=== PATIENT | male | born 1950 | race Caucasian/White ===

== ENCOUNTER 2020-10-18 08:14 | Outpatient (REF) | payer MEDICARE, MEDICAID, SELFPAY ==
[2020-10-18 10:51] LABS: Alanine Aminotransferase 22 U/L (0-40); Albumin Level 4.3 g/dL (3.5-5.0); Alkaline Phosphatase 58 U/L (39-117); Anion Gap 12 (12-20); Aspartate Amino Transferase 20 U/L (5-37); Bilirubin Total 0.7 mg/dL (0.0-1.0); Blood Urea Nitrogen 12 mg/dL (9-16); Calcium 9.1 mg/dL (8.4-10.2); Carbon Dioxide 28 mmol/L (22-29); Chloride 105 mmol/L (96-108); Cholesterol 137 mg/dL; Estimated Glomerular Filt Rate > 60; Glucose Fasting 88 mg/dL (60-99); HDL Cholesterol 35 mg/dL; LDL Cholesterol Calculated 88 mg/dl; Potassium 4.3 mmol/L (3.3-5.1); Sodium 141 mmol/L (135-145); Triglycerides 73 mg/dL
[2020-10-18 12:42] LABS: Prostate Specific Antigen Scr 0.37 ng/mL (<0.05-4.0); TSH reflex Free T4 0.66 uIU/mL (0.32-4.0)
== END 2020-10-18 08:15 | disposition home or self-care (01) ==
LOC: HO.LAB 08:14
PROVIDERS: PCP Hospitalist; Visit Provider Family Medicine
DX: Z00.00 Encounter for general adult medical examination without abnormal findings (principal); Z12.5 Encounter for screening for malignant neoplasm of prostate
CPT/HCPCS: 36415; 80053; 80061; 84153; 84443

== ENCOUNTER 2021-06-26 07:38 | Outpatient (REF) | payer MEDICARE, MEDICAID, SELFPAY ==
[2021-06-26 08:38] LABS: Hematocrit 43.3 % (42.0-52.0); Hemoglobin 13.9 g/dl (14.0-18.0); Mean Corpuscular HGB Conc 32.1 g/dl (31.0-36.0); Mean Corpuscular Hemoglobin 28.3 pg (27.0-33.0); Mean Corpuscular Volume 88.2 fL (80.0-98.0); Mean Platelet Volume 9.2 fL (9.4-12.4); Platelet Count 224 X10*3/uL (160-400); Red Blood Count 4.91 X10*6/uL (4.60-5.80); Red Cell Distribution Width 13.7 % (11.0-16.0); White Blood Count 7.4 X10*3/uL (4.8-10.8)
[2021-06-26 09:06] LABS: Alanine Aminotransferase 13 U/L (0-40); Albumin Level 3.9 g/dL (3.5-5.0); Alkaline Phosphatase 58 U/L (39-117); Anion Gap 12 (12-20); Aspartate Amino Transferase 17 U/L (5-37); Bilirubin Total 0.5 mg/dL (0.0-1.0); Blood Urea Nitrogen 8 mg/dL (9-16); Calcium 9.2 mg/dL (8.4-10.2); Carbon Dioxide 27 mmol/L (22-29); Chloride 107 mmol/L (96-108); Cholesterol 149 mg/dL; Estimated Glomerular Filt Rate > 60; Glucose Fasting 91 mg/dL (60-99); HDL Cholesterol 39 mg/dL; LDL Cholesterol Calculated 92 mg/dl; Potassium 4.5 mmol/L (3.3-5.1); Sodium 141 mmol/L (135-145); Triglycerides 90 mg/dL
[2021-06-26 09:27] LABS: TSH reflex Free T4 1.23 uIU/mL (0.32-4.0)
== END 2021-06-26 07:39 | disposition home or self-care (01) ==
LOC: HO.LAB 07:38
PROVIDERS: PCP Hospitalist; Visit Provider Hospitalist
DX: Z00.01 Encounter for general adult medical examination with abnormal findings (principal)
CPT/HCPCS: 36415; 80053; 80061; 84443; 85027

== ENCOUNTER → 2021-10-02 10:05 | Outpatient (REF) | payer MEDICARE, MEDICAID, SELFPAY ==
--- NOTE | 2021-10-02 10:15 | ECG_ITS ---
Test Reason : HIGH MED USE Blood Pressure : / mmHG Vent. Rate : 063 BPM Atrial Rate : 063 BPM P-R Int : 148 ms QRS Dur : 090 ms QT Int : 412 ms P-R-T Axes : 039 009 033 degrees QTc Int : 421 ms Normal sinus rhythm Normal ECG When compared with ECG of 21-JUN-2018 22:07, No significant change was found Referred By: Mirella Whitfield Electronically Signed By:ELI MILLER MD
== END ==
LOC: HO.CARD 10:05
PROVIDERS: PCP Hospitalist; Visit Provider Clinical Nurse Specialist Psychiatric/Mental Health, Adult
DX: Z79.899 Other long term (current) drug therapy (principal)
CPT/HCPCS: 93005

== ENCOUNTER 2021-10-24 07:39 | Outpatient (REF) | payer MEDICARE, MEDICAID, SELFPAY ==
[2021-10-24 07:54] LABS: MANUAL DIFF FLAG NO
[2021-10-24 08:38] LABS: Basophils Percent Auto 0.5 % (0-2); Eosinophils Absolute Auto 0.2 X10*3/uL (0.0-0.4); Eosinophils Percent Auto 2.1 % (0-4); Hematocrit 44.9 % (42.0-52.0); Hemoglobin 14.9 g/dl (14.0-18.0); Imm Gran Abs Auto 0.02 X10*3/uL (0.00-0.03); Imm Gran Pct Auto 0.2 % (0.0-0.4); Lymphocytes Absolute Auto 2.4 X10*3/uL (1.2-4.9); Lymphocytes Percent Auto 27.6 % (20-40); Mean Corpuscular HGB Conc 33.2 g/dl (31.0-36.0); Mean Corpuscular Hemoglobin 29.2 pg (27.0-33.0); Mean Platelet Volume 9.3 fL (9.4-12.4); Monocytes Absolute Auto 0.7 X10*3/uL (0.1-1.2); Monocytes Percent Auto 7.5 % (2-11); Neutrophils Absolute Auto 5.4 x10*3/uL (2.0-8.3); Neutrophils Percent Auto 62.1 % (45-73); Platelet Count 235 X10*3/uL (160-400); Red Cell Distribution Width 13.2 % (11.0-16.0); White Blood Count 8.7 X10*3/uL (4.8-10.8)
[2021-10-24 09:12] LABS: Alanine Aminotransferase 26 U/L (0-40); Albumin Level 4.2 g/dL (3.5-5.0); Alkaline Phosphatase 57 U/L (39-117); Anion Gap 13 (12-20); Aspartate Amino Transferase 22 U/L (5-37); Bilirubin Direct 0.3 mg/dL (0.0-0.5); Bilirubin Total 0.7 mg/dL (0.0-1.0); Blood Urea Nitrogen 13 mg/dL (9-16); Calcium 9.4 mg/dL (8.4-10.2); Carbon Dioxide 28 mmol/L (22-29); Chloride 104 mmol/L (96-108); Cholesterol 164 mg/dL; Estimated Glomerular Filt Rate > 60; Glucose Random 91 mg/dL (60-115); HDL Cholesterol 40 mg/dL; LDL Cholesterol Calculated 107 mg/dl; Potassium 4.1 mmol/L (3.3-5.1); Sodium 141 mmol/L (135-145); Total Protein 7.3 g/dL (6.5-8.0); Triglycerides 87 mg/dL
[2021-10-24 09:22] LABS: HBc Num1 0.06 S/CO (0.00-0.79); HBsAGNum1 0.27 S/CO (0.00-0.99); Hepatitis B Core Antibody Nonreactive (Nonreactive); Hepatitis B Surface Antigen Negative (Negative); ~HepC Num1 0.07 S/CO (0.00-0.79); ~Hepatitis B Surface Antibody NONREACTIVE (Nonreactive); ~Hepatitis C Antibody Nonreactive (Nonreactive)
[2021-10-27 01:02] LABS: TS Negative Control Passed; TS Panel A 0; TS Panel B 0; TS Positive Control Passed; TSpotTB Negative (Negative)
== END 2021-10-24 07:40 | disposition home or self-care (01) ==
LOC: HO.LAB 07:39
PROVIDERS: PCP Hospitalist; Visit Provider Physician Assistant Medical
DX: Z11.1 Encounter for screening for respiratory tuberculosis (principal); L40.0 Psoriasis vulgaris
CPT/HCPCS: 36415; 80048; 80061; 80076; 85025; 86481; 86704; 86706; 86803; 87340

== ENCOUNTER 2023-03-05 13:14 | Outpatient (AMB) | payer MEDICARE, MEDICAID, SELFPAY ==
--- NOTE | 2023-03-05 13:14 | MHC.PC.OV ---
Vital Signs 03/05/23 13:15 Height 5 ft 7 in Weight 168 lb 2 oz BMI 26.3 BP 126/60 Blood Pressure Location Rt brachial Position Sitting Respiration 12 Pulse 94 Pulse Source Pulse Oximeter Temp 97.5 F Temp Source Temporal Artery Scan Pulse Oximetry (%) 96 Oxygen Delivery Method Room Air Intake Visit Reasons: 6 m fu for asthma, htn and constipation Security Operations Center Operator Required: Yes Security Operations Center Operator Name: Ady ([id number]) Accompanied by: social sciences professor Allergies No Known Allergies [No Known Allergies*] Allergy (Verified 03/05/23 13:36) Medication List - Last Reconciled 03/05/23 by Kamaljit Nath CNP acetaminophen 650 mg (2 x 325 mg) PO Q6H PRN albuterol sulfate 90 mcg/actuation (Ventolin HFA) 2 puffs inhalation Q6H PRN 30 days apremilast (Otezla) 30 mg PO BID ciclopirox 0.77% 1 appl topical ONCE 4 weeks escitalopram oxalate 20 mg PO DAILY fluocinonide 0.05% 1 appl topical BID 30 days gabapentin 400 mg (1/2 x 800 mg) PO TID magnesium hydroxide (Milk of Magnesia) 30 mL PO .q 72 hours PRN 30 days melatonin 3 mg PO BEDTIME multivitamin with iron-mineral 1 tab PO DAILY 90 days prazosin 2 mg PO BEDTIME risperidone 1 mg PO DAILY risperidone 2 mg PO BEDTIME tapinarof 1% (Vtama) 1 appl topical DAILY trazodone 25 mg PO DAILY Tobacco use date assessed: 03/05/23 Fall risk assessment: No Falls in past year Last assessed Fall Risk: 03/05/23 Dental Screening Dental Screen Date: 03/05/23 Did you have a dental visit in the last 12 months?: Yes Did you have a dental problem in the last 6 months where you did not have access to dental care?: No Was dental information given to patient?: Patient has dentist HPI HPI Comments History of Present Illness Details 72-year-old Algerian speaking male presents for 6 months follow-up for asthma, hypertension, and constipation. He denies history of hypertension. He also denies acute asthma or constipation symptoms. His former PCP was [facility] was no longer with the practice He admits to taking his medication as prescribed His last physical exam was in July 2022 and blood work was in September 2021. He reports regular bowel movements and denies bowel changes. According to the [facility] staff, the patient is followed by a psychiatrist every 3-6 month for anxiety and depression. His psychiatrist manages his psychotropic medications. He notes that his last colonoscopy was over 10 years ago: normal. He admits to getting annual eye exam and states he has a follow-up visit with Ophthalmology next week. He states that he smokes between 3 to 9 cigarettes daily for several years. He notes that he started smoking since he was 20 years old. He states that he intends to quit smoking and will abruptly quit. He states he does not need medication treatment for smoking cessation. [facility] Medical History (Updated 03/05/23 @ 14:31 by Kamaljit Nath CNP) Nervous disorder Depression Anxiety Surgical History (Updated 03/05/23 @ 13:26 by Kya Syed MA) No pertinent past surgical history Social History Housing: Other ([facility] ) Housing Other:: [facility] Alcohol intake: former Patient Tobacco Use Status: Current everyday Tobacco user Tobacco use type: Cigarette Cigarettes Per Day: 7 e-Cigarette/Vaping Use: Never Used service: No Current occupational status: unemployed Cognitive needs: Yes Hearing needs: Yes Vision needs: No Questionnaire Thrive Questionnaire Date Thrive assessed: 07/16/22 CARIE-7 AMB Questionnaire CARIE-7 Date CARIE - 7 assessed: 07/16/22 Source: Developed by Drs. Stefano Rajan, Maria Dolores Multani, Kaden Oscar and colleagues, with an educational juan from [employer]. ACT Questionnaire In the past 4 weeks, how much of the time did your asthma keep you from getting as much done at work, school or at home?: Most of the time During the past 4 weeks, how often have you had shortness of breath?: 3-6 times a week During the past 4 weeks, how often did your asthma symptoms wake you up at night or earlier than usual in the morning?: Not at all During the past 4 weeks, how often have you had to use your rescue inhaler or nebulizer medication?: Not at all How would you rate your asthma control during the past 4 weeks?: Well controlled Score: 19 Review of Systems Const Details: Const Denies chills, Denies fatigue, Denies fever(s), Denies headache(s) and Denies weakness ENT Denies dizziness and Denies headache(s) Card Denies chest pain, Denies lightheadedness, Denies dyspnea and Denies other (Palpitations) Resp Denies cough, Denies dyspnea, Denies wheezing and Denies other ( shortness of breath) GI Denies abdominal pain, Denies melena, Denies hematochezia, Denies change in bowel habits, Denies dyspepsia and Denies nausea Denies hematuria and Denies dysuria Musc Denies abnormal gait, Denies myalgias, Denies arthralgias, Denies numbness and Denies tingling Skin/Breast Denies rash, Denies unusual bruising and Denies wounds Neuro Denies abnormal gait, Denies dizziness, Denies headache(s), Denies memory loss, Denies numbness, Denies Sensory deficit (Neuro), Denies tingling and Denies weakness Psych Denies anxiety, Denies depression, Denies memory loss Endo Denies cold intolerance, Denies fatigue, Denies heat intolerance, Denies polydipsia and Denies polyuria Aller/Immun Denies wheezing Physical exam (Primary Care) Vital Signs: Last Vital Signs Temp 97.5 F 03/05/23 13:15 Pulse 94 03/05/23 13:15 Resp 12 03/05/23 13:15 BP 126/60 03/05/23 13:15 Pulse Ox 96 03/05/23 13:15 Oxygen Delivery Method Room Air 03/05/23 13:15 BMI result Body Mass Index 26.3 Tobacco/Smoking Status: Tobacco use Status Tobacco use date assessed 03/05/23 03/05/23 13:31 Patient Tobacco Use Status Current everyday Tobacco 03/05/23 13:22 Tobacco use type Cigarette 03/05/23 13:22 e-Cigarette/Vaping Use Never Used 03/05/23 13:22 Thrive Assessment: Date of Thrive Assessment Date Thrive assessed 07/16/22 03/05/23 13:22 Const Other: General: no acute distress and well developed Nutritional Appearance: well nourished Orientation/consciousness: patient oriented x3 HENMT Head: Yes normocephalic and Yes atraumatic Eyes General: appearance normal, both eyes and all related structures Pupils: Equal, round and reactive pupils present EOM: EOMs intact bilaterally Resp Effort & Inspection: normal respiratory effort Auscultation: clear to auscultation bilaterally Cardio Rate: regular rate Rhythm: regular rhythm Heart sounds: S1 normal heart sound present, S2 normal heart sound present, no gallops, no murmurs and no rubs GI Palpation (GI): No Abdominal aortic bruit present, Soft to palpation, nontender, No hepatosplenomegaly present and No Rebound tenderness present Auscultation: normal bowel sounds General: Yes no CVA tenderness Back/Spine/Pelvis Back: no CVA tenderness Cervical Spine: cervical ROM normal and No Cervical spine tenderness Thoracic/Lumbar Spine: thoraco-lumbar ROM normal, No pain with thoraco-lumbar ROM, No thoracic spinal tenderness and No lumbar spinal tenderness Extrem General: Yes normal to inspection, No edema and No calf tenderness Skin General: warm and dry. Normal skin color. Normal skin turgor Lesions: no lesions Rashes: no rashes Trauma: no lacerations or abrasions Wounds: no wounds Nails: normal Neuro General: patient oriented x3, gait normal and no focal neuro deficit Cranial nerves: Yes Equal, round and reactive pupils present Cognition (Neuro): normal cognition Gait exam (Neuro): Normal gait present Sensory Exam: No Sensory deficit (Neuro) Psych Appearance: grossly normal Affect: normal affect Attitude: cooperative Thought process: Normal thought process present Assessment and Plan Assessment & Plan (1) Anxiety: Code(s): F41.9 - Anxiety disorder, unspecified Plan: No acute symptoms at this time Normal physical exam Vital signs stable Encouraged to continue with current treatment regimen Continue follow-up with his psychiatrist as planned Follow-up with Ophthalmology as planned Routine labs ordered. Advised to fast for at least 10-12 hours before getting blood work done Encouraged to schedule his next complete physical exam for next year Return with symptoms or concerns Verbalized understanding and agreed with treatment plan. Interpretation by professional manager land via electronic tablet. (2) Depression: Code(s): F32.9 - Major depressive disorder, single episode, unspecified Plan: As above (3) Colon cancer screening: Code(s): Z12.11 - Encounter for screening for malignant neoplasm of colon Plan: He notes that his last colonoscopy was over 10 years ago: normal [place]erred [place] [facility] (4) Laboratory tests ordered as part of a complete physical exam (CPE): Code(s): Z00.00 - Encounter for general adult medical examination without abnormal findings Plan: Fasting labs ordered as part of a complete physical exam. Advised to fast for at least 10 hours before getting labs drawn. May drink water Verbalized understanding and agreed with treatment plan. Orders: Orders Complete Blood Count Auto Diff Today Z00.00 - Encounter for general adult medical examination without abnormal findings UA CC w/rflx Micro + Cult Today Z00.00 - Encounter for general adult medical examination without abnormal findings PSA, Ultra Sensitive Today Z00.00 - Encounter for general adult medical examination without abnormal findings Comprehensive [place]. Panel Fast Today Z00.00 - Encounter for general adult medical examination without abnormal findings Lipid Panel Today Z00.00 - Encounter for general adult medical examination without abnormal findings TSH reflex Free T4 Today Z00.00 - Encounter for general adult medical examination without abnormal findings Referrals Gastroenterology Referral Z12.11 - Encounter for screening for malignant neoplasm of colon Medications: Changed From risperidone 2 mg PO BID 60 tabs 3RF To risperidone 2 mg PO BEDTIME Coding Level of Care Code Est Pt Level 3 (64976) Diagnoses Anxiety F41.9 Depression F32.9 Colon cancer screening Z12.11 Laboratory tests ordered as part of a complete physical exam (CPE) Z00.00
[2023-03-05 13:15] VITALS: BP 126/60; PULSE 94; RESP 12; TEMP 36.4; O2SAT 96; BMI 26.3
== END 2023-03-05 14:21 | disposition home or self-care (01) ==
PROVIDERS: PCP Nurse Practitioner Family; Visit Provider Nurse Practitioner Family
DX: F41.9 Anxiety disorder, unspecified (principal); F32.9 Major depressive disorder, single episode, unspecified; Z12.11 Encounter for screening for malignant neoplasm of colon; F17.210 Nicotine dependence, cigarettes, uncomplicated
CPT/HCPCS: 99214

== ENCOUNTER 2023-03-06 08:23 | Outpatient (REF) | payer MEDICARE, MEDICAID, SELFPAY ==
[2023-03-06 09:36] LABS: Alanine Aminotransferase 14 U/L (0-40); Albumin Level 4.2 g/dL (3.5-5.0); Alkaline Phosphatase 67 U/L (39-117); Anion Gap 13 (12-20); Aspartate Amino Transferase 19 U/L (5-37); Bilirubin Total 0.4 mg/dL (0.0-1.0); Blood Urea Nitrogen 7 mg/dL (9-16); Calcium 9.3 mg/dL (8.4-10.2); Carbon Dioxide 28 mmol/L (22-29); Chloride 105 mmol/L (96-108); Cholesterol 142 mg/dL (<200); Estimated Glomerular Filt Rate > 60; Glucose Fasting 101 mg/dL (60-99); HDL Cholesterol 43 mg/dL (>40); LDL Cholesterol Calculated 85 mg/dL (<100); Potassium 4.1 mmol/L (3.3-5.1); Sodium 142 mmol/L (135-145); Total Protein 7.1 g/dL (6.5-8.0); Triglycerides 72 mg/dL (<150)
[2023-03-06 09:40] LABS: TSH reflex Free T4 0.72 uIU/mL (0.32-4.0)
[2023-03-12 19:18] LABS: PSA, Ultra Sensitive 0.13 ng/mL
== END 2023-03-06 08:24 | disposition home or self-care (01) ==
LOC: HO.LAB 08:23
PROVIDERS: Visit Provider Nurse Practitioner Family
DX: Z00.00 Encounter for general adult medical examination without abnormal findings (principal); Z20.822 Contact with and (suspected) exposure to COVID-19; Z12.5 Encounter for screening for malignant neoplasm of prostate
CPT/HCPCS: 36415; 80053; 80061; 81003; 84153; 84443; 85025

== ENCOUNTER → 2023-04-17 12:24 | Outpatient (BNVA) | payer MEDICARE, MEDICAID, SELFPAY | PROVIDERS: PCP Nurse Practitioner Family; Visit Provider Physician Assistant ==

== ENCOUNTER 2023-08-05 10:06 | Outpatient (AMB) | payer MEDICARE, MEDICAID, SELFPAY ==
[2023-08-05 10:11] VITALS: BP 124/60; PULSE 75; RESP 13; TEMP 36.3; O2SAT 99; BMI 26.2
--- NOTE | 2023-08-05 10:11 | MHC.PC.OV ---
Vital Signs 08/05/23 10:11 Height 5 ft 7 in Weight 167 lb 2 oz BMI 26.2 BP 124/60 Blood Pressure Location Rt brachial Position Sitting Respiration 13 Pulse 75 Pulse Source Pulse Oximeter Temp 97.4 F Temp Source Temporal Artery Scan Pulse Oximetry (%) 99 Oxygen Delivery Method Room Air Intake Visit Reasons: Extended exam Allergies No Known Allergies [No Known Allergies*] Allergy (Verified 08/05/23 10:21) Medication List - Last Reconciled 08/05/23 by Kamaljit Nath CNP acetaminophen 650 mg (2 x 325 mg) PO Q6H PRN albuterol sulfate 90 mcg/actuation (Ventolin HFA) 2 puffs inhalation Q6H PRN 30 days apremilast (Otezla) 30 mg PO BID betamethasone, augmented 0.05 % topical bisacodyl (Dulcolax (bisacodyl)) 20 mg (4 x 5 mg) PO ONCE 1 day ciclopirox 0.77% 1 appl topical ONCE 4 weeks escitalopram oxalate 20 mg PO DAILY fluocinonide 0.05% 1 appl topical BID 30 days gabapentin 400 mg (1/2 x 800 mg) PO TID magnesium hydroxide (Milk of Magnesia) 30 mL PO .q 72 hours PRN 30 days melatonin 3 mg PO BEDTIME multivitamin with iron-mineral 1 tab PO DAILY 90 days polyethylene glycol 3350 (Miralax) 238 grams PO ONCE PRN 1 day prazosin 2 mg PO BEDTIME risperidone 1 mg PO DAILY risperidone 2 mg PO BEDTIME tacrolimus 0.1% (Protopic) 1 appl topical BID tapinarof 1% (Vtama) 1 appl topical DAILY trazodone 25 mg PO DAILY Tobacco use date assessed: 08/05/23 Fall risk assessment: No Falls in past year Last assessed Fall Risk: 08/05/23 Dental Screening Dental Screen Date: 08/05/23 Did you have a dental visit in the last 12 months?: Yes Did you have a dental problem in the last 6 months where you did not have access to dental care?: No Was dental information given to patient?: Patient has dentist HPI HPI Comments History of Present Illness Details 72-year-old Arabic speaking male, accompanied by senior living staff, presents for an extended physical exam He has past medical history of asthma, psoriasis, constipation, PTSD, anxiety, and depression. According to the staff, the patient is on Risperidone for behavioral disturbances unknown to the staff He is followed by a psychiatrist every 3 months. His next appointment is on 09/11/2023 according to senior living staff He admits to taking his medications as prescribed without adverse reactions He notes that he is anxious. He states that the medications are not helping with his anxiety. He notes that he sometimes think that he is better being . However, he denies active SI, denies current SI/HI, plan or intent Last colonoscopy was over 10 years ago. He [place] an [place] [facility] [place]; he has a follow up appointment in August His last eye exam with Dr. Barahona was on 03/06/2023 He smokes 3-4 cigarettes daily, sometimes more. He notes that he has been smoking since he was 20 years old His last dental visit was in 01/2023 He has not been vaccinated for the flu this season Interpretation by a professional money market dealer via electronic tablet [facility] Medical History Nervous disorder Depression Anxiety Surgical History No pertinent past surgical history Social History Housing: Other (senior living ) Housing Other:: senior living Alcohol intake: former Patient Tobacco Use Status: Current everyday Tobacco user Tobacco use type: Cigarette Cigarettes Per Day: 7 e-Cigarette/Vaping Use: Never Used service: No Current occupational status: unemployed Cognitive needs: No Hearing needs: Yes Vision needs: Yes Questionnaire PHQ-9 Over the last 2 weeks, how often have you been bothered by any of the following problems? 1. Little interest or pleasure in doing things: not at all 2. Feeling down, depressed, or hopeless: nearly every day 3. Trouble falling or staying asleep, or sleeping too much: several days 4. Feeling tired or having little energy: several days 5. Poor appetite or overeating: nearly every day 6. Feeling bad about yourself - or that you are a failure or have let yourself or your family down: several days 7. Trouble concentrating on things, such as reading the newspaper or watching television: not at all 8. Moving or speaking so slowly that other people could have noticed. Or the opposite - being so fidgety or restless that you have been moving around a lot more than usual: several days 9. Thoughts that you would be better off or of hurting yourself in some way: several days Total score: 11 Depression Screening Interpretation: Positive Depression Screening Follow-up: Existing condition, In treatment and New Medication prescribed Depression Screening Done: Yes 70286 - PHQ-9 Billing: Yes Source: Developed by Drs. Stefano Rajan, Maria Dolores Multani, Kaden Oscar and colleagues, with an educational juan from [employer]. Thrive Questionnaire Date Thrive assessed: 08/05/23 I am a: Patient What is your living situation today?: I have a steady place to live Within the past 12 months, did the food you bought not last and you didn't have the money to get more?: Never true Within the past 12 months, did you worry whether your food would run out before you got money to buy more?: Never true Do you have trouble paying for medicines?: No Do you have trouble getting transportation to medical appointments?: No Do you have trouble paying your heating and electricity bill?: No Do you have trouble taking care of your child, family member or friend?: No Do you have trouble with day-to-day activities such as bathing, preparing meals, shopping, managing finances, etc.?: No Are you currently unemployed and looking for a job?: No Are you interested in more education?: No Please select the resources that you would like help with: None Currently or been in a relationship where the following occur: no concerns reported THRIVE Score: 0 AUDIT C Alcohol Use Questionnaire (AUDIT-C) 1. How often do you have a drink containing alcohol?: Never 3. How often do you have six or more drinks on one occasion?: Never Total Score: 0 CARIE-7 AMB Questionnaire CARIE-7 Date CARIE - 7 assessed: 08/05/23 Feeling nervous, anxious, or on edge: 3 = Nearly every day Not being able to stop or control worryin = Nearly every day Worrying too much about different things: 3 = Nearly every day Trouble relaxin = Nearly every day Being so restless that it is hard to sit still: 3 = Nearly every day Becoming easily annoyed or irritable: 3 = Nearly every day Feeling afraid as if something awful might happen: 3 = Nearly every day Total CARIE-7 score (0-4 normal; 5-9 mild; 10-14 moderate; 15-21 severe): 21 Source: Developed by Drs. Stefano Rajan, Maria Dolores Multani, Kaden Oscar and colleagues, with an educational juan from [employer]. CARIE-7 Assessment Billing CARIE-7 Assessment Tool: CARIE-7 Assessment 45253 Review of Systems Const Details: Denies chills, Denies fatigue, Denies fever(s), Denies headache(s) and Denies weakness HEENT Denies change in vision, Denies dizziness, Denies headache(s), Denies hearing loss, Denies nasal congestion, Denies sinus pain, Denies sinus pressure and Denies sore throat Card Denies chest pain, Denies lightheadedness, Denies dyspnea and Denies other (palpitations) Resp Denies cough, Denies dyspnea and Denies wheezing GI Denies abdominal pain, Denies melena, Denies hematochezia, Denies change in bowel habits, Denies dyspepsia and Denies nausea Denies hematuria and Denies dysuria Musc Denies abnormal gait, Denies myalgias, Denies arthralgias, Denies numbness and Denies tingling Skin/Breast Denies rash, Denies unusual bruising and Denies wounds Neuro Denies abnormal gait, Denies dizziness, Denies headache(s), Denies memory loss, Denies numbness, Denies Sensory deficit (Neuro), Denies tingling and Denies weakness Psych Reports anxiety, Reports depression and Denies memory loss Endo Denies cold intolerance, Denies fatigue, Denies heat intolerance, Denies polydipsia and Denies polyuria Bo/Lymph Denies easy bleeding and Denies easy bruising Aller/Immun Denies wheezing Physical exam (Primary Care) Vital Signs: Last Vital Signs Temp 97.4 F 08/05/23 10:11 Pulse 75 08/05/23 10:11 Resp 13 08/05/23 10:11 BP 124/60 08/05/23 10:11 Pulse Ox 99 08/05/23 10:11 Oxygen Delivery Method Room Air 08/05/23 10:11 BMI result Body Mass Index 26.2 Tobacco/Smoking Status: Tobacco use Status Tobacco use date assessed 08/05/23 08/05/23 10:23 Patient Tobacco Use Status Current everyday Tobacco 08/05/23 10:11 Tobacco use type Cigarette 08/05/23 10:11 e-Cigarette/Vaping Use Never Used 08/05/23 10:11 PHQ-9: PHQ-9 Score PHQ-9: Total score 11 08/05/23 10:37 Depression Screening Interpretation: Positive Depression Screening Follow-up: Existing condition, In treatment and New Medication prescribed Thrive Assessment: Date of Thrive Assessment Date Thrive assessed 08/05/23 08/05/23 10:28 Currently or been in a relationship where the following occur: no concerns reported Const Other: General: no acute distress, well developed, alert and awake Nutritional Appearance: well nourished Orientation/consciousness: patient oriented x3 HENMT Head: Yes normocephalic and Yes atraumatic Ears: hearing grossly normal bilaterally and TM's normal bilaterally General nose exam: Normal external nose present and Normal nares present Mouth: Normal oral and palatal mucosa present and moist mucous membranes Teeth and gingiva: dentition normal Throat: Yes oropharynx normal Eyes Pupils: Equal, round and reactive pupils present and Pupil accommodation reflex normal EOM: EOMs intact bilaterally Neck Neck: Yes normal visual inspection, Yes no lymphadenopathy and Yes trachea midline Thyroid: Thyroid normal Carotids: no bruits Lymphatic: no lymphadenopathy noted Chest Chest palpation & inspection: normal inspection of the chest Resp Effort & Inspection: normal respiratory effort Auscultation: clear to auscultation bilaterally Cardio Rate: regular rate Rhythm: regular rhythm Heart sounds: S1 normal heart sound present, S2 normal heart sound present, no gallops, no murmurs and no rubs Bruits: no abdominal aortic bruits and no carotid bruits GI Palpation (GI): No Abdominal aortic bruit present, Soft to palpation, nontender, No hepatosplenomegaly present and No Rebound tenderness present Auscultation: normal bowel sounds General: Yes no CVA tenderness Back/Spine/Pelvis Back: no CVA tenderness Cervical Spine: cervical ROM normal and No Cervical spine tenderness Thoracic/Lumbar Spine: thoraco-lumbar ROM normal, No pain with thoraco-lumbar ROM, No thoracic spinal tenderness and No lumbar spinal tenderness Skin General: warm and dry. Normal skin color. Normal skin turgor Lesions: no lesions Rashes: no rashes Trauma: no lacerations or abrasions Wounds: no wounds Nails: normal Neuro General: patient oriented x3, gait normal and CN's II-XI intact bilaterally Cranial nerves: Yes Equal, round and reactive pupils present Cognition (Neuro): normal cognition Gait exam (Neuro): Normal gait present Motor exam (neuro): 5/5 motor strength present throughout Sensory Exam: No Sensory deficit (Neuro) Deep tendon reflexes (DTR's): Right patellar reflex intensity grade: 2+ and Left patellar reflex intensity grade: 2+ Extrem General: Yes normal to inspection, No edema and No calf tenderness Psych Appearance: grossly normal Affect: normal affect Attitude: cooperative Thought process: Normal thought process present Assessment and Plan Assessment & Plan (1) Normal physical exam: Code(s): Z00.00 - Encounter for general adult medical examination without abnormal findings Plan: No significant physical restrictions or limitations noted Continue current treatment regimen Advised to call and schedule a follow-up visit with a psychiatrist before August Return in 2 weeks for anxiety and depression or sooner with new or worsening symptoms Verbalized understanding and agreed with treatment plan (2) Anxiety: Code(s): F41.9 - Anxiety disorder, unspecified Plan: Reports increased anxiety symptoms He sometimes thinks that he is better being . However, he does not have active suicide thoughts. No current SI/HI Buspirone ordered 7.5 mg twice daily. Take as prescribed Continue to take risperidone, trazodone, and escitalopram as prescribed Routine exercise encouraged Follow-up in 2 weeks or sooner with worsening or new symptoms Verbalized understanding and agreed with treatment plan (3) Depression: Code(s): F32.9 - Major depressive disorder, single episode, unspecified Plan: As above (4) Smoker: Code(s): F17.200 - Nicotine dependence, unspecified, uncomplicated Plan: He smokes 3-4 cigarettes daily, sometimes more. He notes that he has been smoking since he was 20 years old Instructed on the health risks and complications of cigarette smoking encouraged to avoid smoking LDCT ordered (5) Vaccine counseling: Code(s): Z71.85 - Encounter for immunization safety counseling Plan: He has not been vaccinated for the flu this season Instructed on the importance of vaccinations and encouraged to get vaccinated for influenza at the local pharmacy Verbalized understanding and agreed with the plan Medications: New buspirone 7.5 mg PO BID 30 days 60 tabs 3RF buspirone 7.5 mg PO BID 30 days 60 tabs 3RF Coding Level of Care Code Est Pt Level 4 (77335) Est Pt Prev Care >65y(20641) Diagnoses Normal physical exam Z00.00 Anxiety F41.9 Depression F32.9 Smoker F17.200 Vaccine counseling Z71.85 Additional Codes CARIE-7 Assessment Billing - CARIE-7 Assessment Tool: CARIE-7 Assessment 57453 ([id number])
== END 2023-08-05 12:04 | disposition home or self-care (01) ==
PROVIDERS: PCP Nurse Practitioner Family; Visit Provider Nurse Practitioner Family
DX: Z00.00 Encounter for general adult medical examination without abnormal findings (principal); F41.9 Anxiety disorder, unspecified; F32.9 Major depressive disorder, single episode, unspecified; F17.200 Nicotine dependence, unspecified, uncomplicated; Z71.85 Encounter for immunization safety counseling
CPT/HCPCS: 96127; 99214; 99397

== ENCOUNTER 2023-09-09 08:35 | Day surgery (SDC) | payer MEDICARE, MEDICAID, SELFPAY ==
[2023-09-05 14:10] VITALS: BMI 25.8
--- NOTE | 2023-09-08 12:42 | HO.ANESPROP2 ---
Documented by User: Sabrina Ambrosio NP 09/08/23 12:45 HPI - Anesthesia Eval Consult details Narrative: 72yo M for Colonoscopy PMFSH Active Problems Active Problems: All Active Problems Vaccine counseling (Acute) Laboratory tests ordered as part of a complete physical exam (CPE) (Acute) Colon cancer screening (Acute) Plantar wart, left foot (Acute) Smoker unmotivated to quit (Acute) Normal physical exam (Acute) Callus of foot (Acute) Hearing loss (Acute) Impacted cerumen of left ear (Acute) Cellulitis of leg without foot, left (Acute) Abnormal physical evaluation (Acute) Depression (Acute) Lives in [facility] (Acute) Overgrown toenails (Acute) Smoker (Acute) Anxiety (Acute) Excessive cerumen in both ear canals (Acute) Pustular psoriasis (Acute) Screening for prostate cancer (Acute) Laboratory examination ordered as part of a routine general medical examination (Acute) Past Medical History Medical History (Updated 09/08/23 @ 12:45 by Sabrina Ambrosio NP) Smoker Nervous disorder Depression Anxiety Surgical History Surgical History No pertinent past surgical history Social History Social History Housing: [facility] ([facility] Other[facility] Alcohol intake: former Patient Tobacco Use Status: Current everyday Tobacco user Tobacco use type: Cigarette Cigarettes Per Day: 0.5 e-Cigarette/Vaping Use: Never Used Use of substances other than those prescribed or required for medical reasons: Yes Are you DNR?: No Advance Directives: No Advance Directives Information Provided: Yes service: No Current occupational status: unemployed Cognitive needs: No Hearing needs: Yes Vision needs: Yes Meds Allergies Allergy/AdvReac Type Severity Reaction Status Date / Time No Known Allergies Allergy Verified 08/05/23 10:21 [No Known Allergies*] Home Medications ?Medication ?Instructions ?Recorded ?Confirmed ?Last Taken ?Type trazodone 50 mg tablet 25 mg PO DAILY 07/16/22 08/05/23 Unknown History apremilast 30 mg tablet (Otezla) 30 mg PO BID 03/05/23 08/05/23 Unknown History risperidone 1 mg tablet 1 mg PO DAILY 03/05/23 08/05/23 Unknown History risperidone 2 mg tablet 2 mg PO BEDTIME 03/05/23 08/05/23 Unknown History betamethasone, augmented 0.05 % topical 08/05/23 08/05/23 Unknown History topical ointment tacrolimus 0.1 % topical ointment 1 appl topical BID 08/05/23 08/05/23 Unknown History (Protopic) Exam Height,Weight and Vital Signs: Height 5 ft 7 in Weight 74.843 kg Assessment and Plan Assessment Anesthesia Assessment: Chart Reviewed Documented by User: Андрей Rodrigues MD 09/09/23 09:07 [facility] Past Medical History Medical History (Updated 09/08/23 @ 12:45 by Sabrina Ambrosio NP) Smoker Nervous disorder Depression Anxiety Family History Family history of problems with anesthesia: No Surgical History Surgical History No pertinent past surgical history History of Problems with Anesthesia: No Social History Social History Housing: [place] ([facility] Other[facility] Alcohol intake: former Patient Tobacco Use Status: Current everyday Tobacco user Tobacco use type: Cigarette Cigarettes Per Day: 0.5 e-Cigarette/Vaping Use: Never Used Use of substances other than those prescribed or required for medical reasons: Yes Are you DNR?: No Advance Directives: No Advance Directives Information Provided: Yes service: No Current occupational status: unemployed Cognitive needs: No Hearing needs: Yes Vision needs: Yes Meds Allergies Allergy/AdvReac Type Severity Reaction Status Date / Time No Known Allergies Allergy Verified 08/05/23 10:21 [No Known Allergies*] Home Medications ?Medication ?Instructions ?Recorded ?Confirmed ?Last Taken ?Type trazodone 50 mg tablet 25 mg PO DAILY 07/16/22 08/05/23 Unknown History apremilast 30 mg tablet (Otezla) 30 mg PO BID 03/05/23 08/05/23 Unknown History risperidone 1 mg tablet 1 mg PO DAILY 03/05/23 08/05/23 Unknown History risperidone 2 mg tablet 2 mg PO BEDTIME 03/05/23 08/05/23 Unknown History betamethasone, augmented 0.05 % topical 08/05/23 08/05/23 Unknown History topical ointment tacrolimus 0.1 % topical ointment 1 appl topical BID 08/05/23 08/05/23 Unknown History (Protopic) Exam Airway Mallampati Class: II TM Dist: >3cm Neck ROM: Full Denture: Upper and Lower Loose/Missing/Broken Teeth: Yes Heart: [id number] Lungs: cta b/l Assessment and Plan Assessment Anesthesia Assessment: Anesthesia Plan Discussed Final Anesthetic Review Family History of Problems with Anesthesia: No History of Problems with Anesthesia: No NPO: Yes ASA Class: III Final Preanesthetic Review: No Changes in Pt Med Stat, Meds/Allgs Chart Reviewed, Consent Obtained/Reviewed and Anes Risks/Benef Reviewed Patient Risk: Intermediate Procedure Risk: Intermediate Assessment/Block/Sedation in SS: Assess/Block/Sedation- Anesthetic Plan Anesthetic Plan: MAC: Disposition: Standard PACU
--- NOTE | 2023-09-09 08:56 | P.HPSUR_ITS ---
Pre-Procedural Eval Section A - 24 Hr Update-Section A only Date of Service: 09/09/23 Section B - Complete if H&P > 30 days Chief Complaint: Encounter for screening for malignant neoplasm of Relevant Family History (Specify if Yes): No Relevant Social History: None Present Medications: see Short Stay Collaborative assessment Medical History: Significant History (Smoker Nervous disorder Depression Anxie ty) History of Previous Operations: No relevant previous surgery Allergies: Allergies Allergy/AdvReac Type Severity Reaction Status Date / Time No Known Allergies Allergy Verified 08/05/23 10:21 [No Known Allergies*] Review of Systems Sugical H&P ROS: Negative: Constitution, Cardiovascular, Respiratory, Neurological, Psychiatric, Hem-Onc, Allergic/Immunologic, Gastrointestinal, Genitourinary, Musculoskeletal, Integumentary, Endocrine and Eyes/E ars/Nose/Throat Exam Surgical H&P Exam: Normal: HEENT, Normal: Heart, Normal: Lungs, Normal: Extremities, Normal: Abdomen, Normal: Skin and Normal: Neurological Plan Diagnosis/Plan: Unchanged I have reviewed the history and physical and performed a pertinent physical examination on my patient. No changes have occurred unless specified. Time Spent With Patient Time: Total time managing care of this patient today ____ minutes.
[2023-09-09 09:00] VITALS: BP 105/71; PULSE 95; RESP 18; TEMP 36.4; O2SAT 95
[2023-09-09 09:01] VITALS: BMI 25.1
[2023-09-09 09:11] VITALS: BP 105/71; PULSE 95; RESP 18; TEMP 36.4; O2SAT 95
[2023-09-09] MEDS: Lactated Ringers 1,000 ML 100 ML IVCONT (09:13)
--- NOTE | 2023-09-09 09:27 | W.PM.OPN ---
Operative Note Operative Note Date of Service: 09/09/23 Narrative: Operative Information Procedure Description: Colonoscopy Indication: screening Anesthesia: MAC COLONOSCOPY Instrument: Olympus variable stiffness pediatric scope 190L Colonoscopy Monitoring: Vital signs and clinical assessment, continuous EKG monitoring, Pulse oximetry, Carbon Dioxide monitoring and blood pressure monitoring were done throughout the procedure. Colon withdrawal time was 20 minutes. Procedure: The patient was placed in the left lateral decubitis position and pre-procedure medications were administered. After a digital rectal examination of the ano-rectum, the video colonoscope was inserted into the rectum and advanced through the colon to the cecum/TI. The colonoscope was slowly withdrawn in a retrograde panoramic fashion and the colon mucosa was carefully examined including a retroflexed view of the rectum. Findings and interventions are described below. Procedure Difficulty: easy Findings: Terminal Ileum-normal Cecum:normal Ascending Colon: x5 sessile polyps 8-10 mm, removed with cold snare Transverse Colon -normal Descending Colon:normal Sigmoid Colon: x4 sessile polyps, 8-10 mm, removed with cold forceps and cold snare Rectum: Retroflexion with small internal hemorrhoids seen, grade I, 10-12 mm sessile polyp removed with cold snare Anorectum - normal Intervention: cold forceps polypectomy and cold snare polypectomy Colon preparation: [place] Bowel Preparation Scale Right colon; 2 Transverse colon: 2 Left colon; 2 (0 = Unprepared colon segment with mucosa not seen due to solid stool that cannot be cleared. 1 = Portion of mucosa of the colon segment seen, but other areas of the colon segment not well seen due to staining, residual stool and/or opaque liquid. 2 = Minor amount of residual staining, small fragments of stool and/or opaque liquid, but mucosa of colon segment seen well. 3 = Entire mucosa of colon segment seen well with no residual staining, small fragments of stool or opaque liquid) Impression and Post Procedure Diagnosis: colon polyps internal hemorrhoids Plan: High fiber diet leaflet Avoid straining at stool, epsom salts and sitz bath, anusol supps or cream Repeat Colonoscopy in 1 year due to polyp burden or earlier if clinically indicated Above findings were reviewed with the patient and relevant handouts were provided if indicated.
[2023-09-09 10:01] VITALS: BP 110/62; PULSE 75; RESP 16; TEMP 36.2; O2SAT 95
[2023-09-09 10:16] VITALS: BP 128/68; PULSE 66; RESP 16; O2SAT 96
[2023-09-09 10:30] VITALS: BP 130/68; PULSE 70; RESP 16; O2SAT 96
[2023-09-09 10:40] VITALS: BP 132/72; PULSE 78; RESP 16; TEMP 36.2; O2SAT 97
== END 2023-09-09 10:57 | disposition home or self-care (01) ==
PROVIDERS: PCP Nurse Practitioner Family; Visit Provider Internal Medicine Gastroenterology
PROC: 0DJD8ZZ Inspection of Lower Intestinal Tract, Via Natural or Artificial Opening Endoscopic (ICD-10-PCS; CPT 45378; principal; 2023-09-09 10:30)
DX: Z12.11 Encounter for screening for malignant neoplasm of colon (principal); D12.2 Benign neoplasm of ascending colon; D12.5 Benign neoplasm of sigmoid colon; D12.8 Benign neoplasm of rectum; K64.0 First degree hemorrhoids; R45.0 Nervousness; F32.A Depression, unspecified; F41.9 Anxiety disorder, unspecified; Z79.899 Other long term (current) drug therapy; F17.210 Nicotine dependence, cigarettes, uncomplicated
CPT/HCPCS: 45385; 45380; 88305; J2704

== ENCOUNTER → 2023-09-09 08:35 | Outpatient (BNV) | payer MEDICARE, MEDICAID, SELFPAY | PROVIDERS: PCP Nurse Practitioner Family; Visit Provider Internal Medicine Gastroenterology | DX: Z12.11 Encounter for screening for malignant neoplasm of colon (principal); K63.5 Polyp of colon; K64.8 Other hemorrhoids | CPT/HCPCS: 45380; 45385 ==

== ENCOUNTER 2023-09-15 11:41 | Outpatient (AMB) | payer MEDICARE, MEDICAID, SELFPAY ==
--- NOTE | 2023-09-15 11:51 | A.OFFPC_ITS ---
Vital Signs 09/15/23 12:06 09/15/23 12:30 BP 98/58 L 90/60 Blood Pressure Location Rt brachial Rt brachial Position Sitting Sitting Respiration 16 Pulse 83 76 Pulse Source Pulse Oximeter Auscultation Temp 98.3 F Temp Source Oral Pulse Oximetry (%) 93 Oxygen Delivery Method Room Air Intake Visit Reasons: F/U anxiety, depression Intake Note: Follow up depression and anxiety Jet Man Required: Yes Allergies No Known Allergies [No Known Allergies*] Allergy (Verified 09/15/23 12:13) Medication List - Last Reconciled 09/15/23 by Kamaljit Nath CNP acetaminophen 650 mg (2 x 325 mg) PO Q6H PRN albuterol sulfate 90 mcg/actuation (Ventolin HFA) 2 puffs inhalation Q6H PRN 30 days apremilast (Otezla) 30 mg PO BID bisacodyl (Dulcolax (bisacodyl)) 20 mg (4 x 5 mg) PO ONCE 1 day buspirone 7.5 mg PO BID 30 days ciclopirox 0.77% 1 appl topical ONCE 4 weeks escitalopram oxalate 20 mg PO DAILY escitalopram oxalate (Lexapro) 20 mg PO .twice daily gabapentin 400 mg (1/2 x 800 mg) PO TID magnesium hydroxide (Milk of Magnesia) 30 mL PO .q 72 hours PRN 30 days melatonin 3 mg PO BEDTIME multivitamin with iron-mineral 1 tab PO DAILY 90 days polyethylene glycol 3350 (Miralax) 238 grams PO ONCE PRN 1 day prazosin 2 mg PO BEDTIME prazosin (Minipress) 2 mg PO BEDTIME risperidone 1 mg PO DAILY risperidone 2 mg PO BEDTIME tacrolimus 0.1% (Protopic) 1 appl topical BID tacrolimus 0.1% (Protopic) 1 appl topical BID tapinarof 1% (Vtama) 1 appl topical DAILY tapinarof 1% (Vtama) 1 appl topical DAILY trazodone 25 mg PO DAILY Tobacco use date assessed: 09/15/23 Fall risk assessment: No Falls in past year Dental Screening Dental Screen Date: 09/15/23 Did you have a dental visit in the last 12 months?: No Did you have a dental problem in the last 6 months where you did not have access to dental care?: Yes Was dental information given to patient?: Patient has dentist HPI HPI Comments History of Present Illness Details 72-year-old Kosovan speaking male, accom panied by [facility] staff, presents for anxiety and depression follow-up. He admits to taking his medications as prescribed without adverse reactions. He is followed by a psychiatrist every 3 months. His last appointment was in 09/11/2023; he has a follow-up in 10/02/2023. According to the [facility] staff, the patient is on risperidone for bilateral upper and lower extremity tremors, which was reduced to 2 mg every night for upper and lower extremity tremors. He reports controlled anxiety and depression symptoms on current treatment regiment. He denies current anxiety and depression symptoms. He denies SI/HI. Interpretation by professional mucking machine operator via electronic tablet. [facility] Medical History Smoker Nervous disorder Depression Anxiety Surgical History No pertinent past surgical history Social History Housing: Other ([facility] ) Housing Other:: [facility] Alcohol intake: former Patient Tobacco Use Status: Current everyday Tobacco user Tobacco use type: Cigarette Cigarettes Per Day: 0.5 Years Smoked: Patient states over 12 years. Packs per year/per ci.00 e-Cigarette/Vaping Use: Never Used service: No Current occupational status: unemployed Cognitive needs: No Hearing needs: Yes Vision needs: Yes Questionnaire PHQ-9 Over the last 2 weeks, how often have you been bothered by any of the following problems? 1. Little interest or pleasure in doing things: several days 2. Feeling down, depressed, or hopeless: more than half the days 3. Trouble falling or staying asleep, or sleeping too much: several days 4. Feeling tired or having little energy: several days 5. Poor appetite or overeating: several days 6. Feeling bad about yourself - or that you are a failure or have let yourself or your family down: not at all 7. Trouble concentrating on things, such as reading the newspaper or watching television: not at all 8. Moving or speaking so slowly that other people could have noticed. Or the opposite - being so fidgety or restless that you have been moving around a lot more than usual: more than half the days 9. Thoughts that you would be better off or of hurting yourself in some wa y: not at all Total score: 8 Depression Screening Interpretation: Positive Depression Screening Follow-up: Existing condition and In treatment Depression Screening Done: Yes 94076 - PHQ-9 Billing: Yes Source: Developed by Drs. Stefano Rajan, Maria Dolores Multani, Kaden Oscar and colleagues, with an educational juan from [employer]. Thrive Questionnaire Date Thrive assessed: 08/05/23 CARIE-7 AMB Questionnaire CARIE-7 Date CARIE - 7 assessed: 09/15/23 Feeling nervous, anxious, or on edge: 3 = Nearly every day Not being able to stop or control worryin = Several days Worrying too much about different things: 1 = Several days Trouble relaxin = Several days Being so restless that it is hard to sit still: 1 = Several days Becoming easily annoyed or irritable: 2 = More than half the days Feeling afraid as if something awful might happen: 1 = Several days Total CARIE-7 score (0-4 normal; 5-9 mild; 10-14 moderate; 15-21 severe): 10 Source: Developed by Drs. Stefano Rajan, Maria Dolores Multani, Kaden Oscar and colleagues, with an educational juan from [employer]. CARIE-7 Assessment Billing CARIE-7 Assessment Tool: CARIE-7 Assessment 48372 Review of Systems Const Details: Const Denies chills, Denies fatigue, Denies fever(s), Denies headache(s) and Denies weakness ENT Denies dizziness and Denies headache(s) Card Denies chest pain, Denies lightheadedness, Denies dyspnea and Denies other (Palpitations) Resp Denies cough, Denies dyspnea, Denies wheezing and Denies other ( shortness of br eath) GI Denies abdominal pain, Denies melena, Denies hematochezia, Denies change in bowel habits, Denies dyspepsia and Denies nausea Denies hematuria and Denies dysuria Musc Denies abnormal gait, Denies myalgias, Denies arthralgias, Denies numbness and Denies tingling Skin/Breast Denies rash, Denies unusual bruising and Denies wounds Neuro Denies abnormal gait, Denies dizziness, Denies headache(s), Denies memory loss, Denies numbness, Denies Sensory deficit (Neuro), Denies tingling and Denies weakness Psych Denies anxiety, Denies depression, Denies memory loss Endo Denies cold intolerance, Denies fatigue, Denies heat intolerance, Denies polydipsia and Denies polyuria Aller/Immun Denies wheezing Physical exam (Primary Care) Vital Signs: Last Vital Signs Temp 98.3 F 09/15/23 12:06 Pulse 76 09/15/23 12:30 Resp 16 09/15/23 12:06 BP 90/60 09/15/23 12:30 Pulse Ox 93 09/15/23 12:06 Oxygen Delivery Method Room Air 09/15/23 12:06 Tobacco/Smoking Status: Tobacco use Status Tobacco use date assessed 09/15/23 09/15/23 12:10 Patient Tobacco Use Status Current everyday Tobacco 09/15/23 12:10 Tobacco use type Cigarette 09/15/23 12:10 e-Cigarette/Vaping Use Never Used 09/15/23 12:10 PHQ-9: PHQ-9 Score PHQ-9: Total score 8 09/15/23 12:14 Depression Screening Interpretation: Positive Depression Screening Follow-up: Existing condition and In treatment Thrive Assessment: Date of Thrive Assessment Date Thrive assessed 08/05/23 09/15/23 12:10 Const Other: General: no acute distress and well developed Nutritional Appearance: well nourished Orientation/consciousness: patient oriented x3 HENMT Head: Yes normocephalic and Yes atraumatic Eyes General: appearance normal, both eyes and all related structures Pupils: Equal, round and reactive pupils present EOM: EOMs intact bilaterally Resp Effort & Inspection: normal respiratory effort Auscultation: clear to auscultation bilaterally Cardio Rate: regular rate Rhythm: regular rhythm Heart sounds: S1 normal heart sound present, S2 normal heart sound present, no gallops, no murmurs and no rubs GI Palpation (GI): No Abdominal aortic bruit present, Soft to palpation, nontender, No hepatosplenomegaly present and No Rebound tenderness present Auscultation: normal bowel sounds General: Yes no CVA tenderness Back/Spine/Pelvis Back: no CVA tenderness Cervical Spine: cervical ROM normal and No Cervical spine tenderness Thoracic/Lumbar Spine: thoraco-lumbar ROM normal, No pain with thoraco-lumbar ROM, No thoracic spinal tenderness and No lumbar spinal tenderness Extrem General: Yes normal to inspection, No edema and No calf tenderness Skin General: warm and dry. Normal skin color. Normal skin turgor Neuro General: patient oriented x3, gait normal and no focal neuro deficit Cranial nerves: Yes Equal, round and reactive pupils present Cognition (Neuro): normal cognition Gait exam (Neuro): Normal gait present Sensory Exam: No Sensory deficit (Neuro) Psych Appearance: grossly normal Affect: normal affect Attitude: cooperative Thought process: Normal thought process present Assessment and Plan Assessment & Plan (1) Anxiety: Code(s): F41.9 - Anxiety disorder, unspecified Plan: Reports controlled anxiety and depression symptoms on current treatment regimen He was recently seen by his psychiatrist and has a follow-up appointment on 10/02/2023. Risperidone was reduced to 2 mg every night. Continue to take as prescribed Continue to take Lexapro 20 mg b.i.d, buspirone 7.5 mg twice daily, and trazodone 25 mg daily Will discontinue prazosin at this time due to low blood pressure reading, 90/60 Routine exercise encouraged Continue follow-up with psychiatrist as planned Follow-up for nurse visit for blood pressure check after the psychiatrist appointment Scheduled an extended physical exam for next year Return sooner with symptoms or concerns Verbalized understanding and agreed with treatment plan (2) Depression: Code(s): F32.9 - Major depressive disorder, single episode, unspecified Plan: As above Medications: Discontinued escitalopram oxalate Discontinued Reason: Doctor's Order 20 mg PO DAILY 30 tabs 3RF prazosin Discontinued Reason: Doctor's Order 2 mg PO BEDTIME 30 caps 3RF Coding Level of Care Code Est Pt Level 3 (47776) Diagnoses Anxiety F41.9 Depression F32.9 Additional Codes CARIE-7 Assessment Billing - CARIE-7 Assessment Tool: CARIE-7 Assessment 43974 ([id number])
[2023-09-15 12:06] VITALS: BP 98/58; PULSE 83; RESP 16; TEMP 36.8; O2SAT 93
[2023-09-15 12:30] VITALS: BP 90/60; PULSE 76
== END 2023-09-15 13:46 | disposition home or self-care (01) ==
PROVIDERS: PCP Nurse Practitioner Family; Visit Provider Nurse Practitioner Family
DX: F41.9 Anxiety disorder, unspecified (principal); F32.9 Major depressive disorder, single episode, unspecified
CPT/HCPCS: 99213

== ENCOUNTER 2023-09-23 11:01 | Outpatient (AMB) | payer MEDICARE, MEDICAID, SELFPAY ==
--- NOTE | 2023-09-23 11:15 | A.OFFVIS_ITS ---
Vital Signs 09/23/23 11:16 Height 5 ft 6 in Weight 163 lb BMI 26.3 BP 106/54 L Blood Pressure Location Lt brachial Position Sitting Pulse 83 Intake Visit Reasons: s/p colon Intake Note: Patient follow up for colonoscopy results. Patient denies any GI issues for today. Burlap Man Required: Yes Accompanied by: Employee Allergies No Known Allergies [No Known Allergies*] Allergy (Verified 09/23/23 11:13) Medication List - Last Reconciled 09/23/23 by Hamida Davalos PA-C acetaminophen 650 mg (2 x 325 mg) PO Q6H PRN albuterol sulfate 90 mcg/actuation (Ventolin HFA) 2 puffs inhalation Q6H PRN 30 days apremilast (Otezla) 30 mg PO BID buspirone 7.5 mg PO BID 30 days ciclopirox 0.77% 1 appl topical ONCE 4 weeks escitalopram oxalate (Lexapro) 20 mg PO .twice daily gabapentin 400 mg (1/2 x 800 mg) PO TID magnesium hydroxide (Milk of Magnesia) 30 mL PO .q 72 hours PRN 30 days melatonin 3 mg PO BEDTIME multivitamin with iron-mineral 1 tab PO DAILY 90 days risperidone 1 mg PO DAILY risperidone 2 mg PO BEDTIME tacrolimus 0.1% (Protopic) 1 appl topical BID tacrolimus 0.1% (Protopic) 1 appl topical BID tapinarof 1% (Vtama) 1 appl topical DAILY tapinarof 1% (Vtama) 1 appl topical DAILY trazodone 25 mg PO DAILY HPI Comments Details: A 72 y/o male f/u after colonoscopy with polypectomy-her with caregiver- automotive parts interpreter device He has no GI complaints Appetite is good bowels are normal Reviewed report, pathology and recommendations No complaints of nausea, vomiting, hematemesis, hematochezia fever chills PFSH Medical History (Updated 09/23/23 @ 11:35 by Hamida Davalos PA-C) Smoker Nervous disorder Depression Anxiety Surgical History Hx of colonoscopy No pertinent past surgical history Social History Housing: Other (prison ) Housing Other:: prison Alcohol intake: former Patient Tobacco Use Status: Current everyday Tobacco user Tobacco use type: Cigarette Cigarettes Per Day: 0.5 Years Smoked: Patient states over 12 years. e-Cigarette/Vaping Use: Never Used service: No Current occupational status: unemployed Cognitive needs: No Hearing needs: Yes Vision needs: Yes Review of Systems Const All systems reviewed & are unremarkable except as noted in HPI and below Physical Exam Vital Signs: Last Vital Signs Pulse 83 09/23/23 11:16 BP 106/54 L 09/23/23 11:16 BMI result Body Mass Index 26.3 Const General: cooperative, healthy appearing, comfortable and no acute distress Orientation/consciousness: patient oriented x3 Limitations: language barrier Resp Effort & Inspection: normal respiratory effort and able to speak in complete sentences Neuro General: patient oriented x3 Psych Appearance: well kempt Mental Status: mental status grossly normal Speech and movement: Clear speech present Affect: Labile affect present Attitude: cooperative Thought process: Normal thought process present Thought content: Normal thought content present Results Reviewed Results Reviewed: Impression and Post Procedure Diagnosis: colon polyps internal hemorrhoids Plan: High fiber diet leaflet Avoid straining at stool, epsom salts and sitz bath, anusol supps or cream Repeat Colonoscopy in 1 year due to polyp burden or earlier if clinically indicated Name: Jamshid Fontanez Age/Sex: 72/M Attending: Patricio Dye MD : 1950 Submitted by: Patricio Dye MD Copies to: Kamaljit Nath [facility] MR #: [id number] Status: [facility] Collected: 09/09/23 Location: [facility] Received: 09/09/23 Diagnosis A. Colon, ascending, polypectomies: Fragments of tubular adenomata; negative for high-grade dysplasia or carcinoma. B. Colon, sigmoid, polypectomies: Tubular adenomata; negative for high-grade dysplasia or carcinoma. C. Rectum, polypectomy: Tubular adenoma; negative for high-grade dysplasia or carcinoma. Clinical History Pre-Op Dx: Encounter for screening for malignant neoplasm Post-Op Dx: Hemorrhoids and polyps Microscopic Description A-C. Microscopic sections reviewed. Material Received A. Ascending colon polyps B. Sigmoid colon polyps C. Rectal polyp Gross Description Received in 3 parts. Part A: Received in formalin labeled ?ascending colon polyps? are 6 harris and harris- pink irregular and papular tissue fragments ranging from 0.15-0.3 cm, submitted in toto in a cassette labeled A. Part B: Received in formalin labeled ?sigmoid polyps? are 5 harris and harris-pink irregular, papular and rectangular tissue fragments ranging from 0.35-0.9 cm, submitted in toto in a cassette labeled B. Part C: Received in formalin labeled ?rectal polyp? is a 1.2 x 0.3-0.6 x 0.3- 0.45 cm harris-pink rectangular- papular tissue fragment, sectioned and entirely submitted in a cassette labeled C. CEDS Copies To Patricio Dye MD [address] [place] [address] Patient: Jamshid Fontanez Age/Sex: 72/M MR#: [id number] Page 1 of 2 Assessment & Plan Assessment & Plan (1) Adenomatous colon polyp: Code(s): D12.6 - Benign neoplasm of colon, unspecified Category: Medical Plan: 1 year repeat colonoscopy (2) Hemorrhoids: Code(s): K64.9 - Unspecified hemorrhoids Category: Medical Plan: avoid strain HFD Plan 1 year colonoscopy HFD Patient Instructions: RTC 9 mos- schedule repeat 1 year polyp surveillance colonoscopy Maintain high-fiber diet Avoid straining with hemorrhoids Consistent bowel regimen Encouraged to call questions or concerns Coding Level of Care Code Est Pt Level 3 (53447) Diagnoses Adenomatous colon polyp D12.6 Hemorrhoids K64.9 Time Spent (min) 30 Comment [id number] automotive parts interpreter, cobol mainframe developer present
[2023-09-23 11:16] VITALS: BP 106/54; PULSE 83; BMI 26.3
== END 2023-09-23 12:50 | disposition home or self-care (01) ==
PROVIDERS: PCP Nurse Practitioner Family; Visit Provider Physician Assistant
DX: D12.6 Benign neoplasm of colon, unspecified (principal); K64.9 Unspecified hemorrhoids
CPT/HCPCS: 99213

== ENCOUNTER → 2023-09-23 11:01 | Outpatient (BNVA) | payer MEDICARE, MEDICAID, SELFPAY | PROVIDERS: PCP Nurse Practitioner Family; Visit Provider Physician Assistant | DX: D12.6 Benign neoplasm of colon, unspecified (principal); K64.9 Unspecified hemorrhoids | CPT/HCPCS: 99212 ==

== ENCOUNTER 2024-07-14 10:59 | Outpatient (AMB) | payer MEDICARE, MEDICAID, SELFPAY ==
--- NOTE | 2024-07-14 11:00 | MHC.OFFVIS ---
Vital Signs 07/14/24 11:03 Height 5 ft 6 in Weight 154 lb 5.177 oz BMI 24.9 BP 129/67 Blood Pressure Location Lt brachial Position Sitting Pulse 79 Intake Visit Reasons: Adenomatous colon polyp (+)/Hamida pt Intake Note: Jamshid presents in the office as a Hamida patient follow up. CC: He states that he is not having any concerns at this time other than pains in the foot that he sees a inspector mechanical for. Search Developer Services: Search Developer Present Search Developer Name: Gagandeep Allergies No Known Allergies [No Known Allergies*] Allergy (Verified 07/14/24 11:03) HPI Comments Details: 73 y.o M with PMH of multiple T.A of colon here to discuss timing of repeat colonoscopy. Colonoscopy 09/08/2022: Cecum:normal Ascending Colon: x5 sessile polyps 8-10 mm, removed with cold snare Transverse Colon -normal Descending Colon:normal Sigmoid Colon: x4 sessile polyps, 8-10 mm, removed with cold forceps and cold snare Rectum: Retroflexion with small internal hemorrhoids seen, grade I, 10-12 mm sessile polyp removed with cold snare Anorectum - normal BBPS 11/08 Path: A. Colon, ascending, polypectomies: Fragments of tubular adenomata; negative for high-grade dysplasia or carcinoma. B. Colon, sigmoid, polypectomies: Tubular adenomata; negative for high-grade dysplasia or carcinoma. C. Rectum, polypectomy: Tubular adenoma; negative for high-grade dysplasia or carcinoma. Recommendation was made for repeat colo in 1 year by the endoscopist. 07/14/24: Pt accompanied by retirementoccupational therapist home based. No acute GI concerns. No abd pain, N,V, diarrhea or rectal bleeding. Med list reviewed. [facility] Medical History Smoker Nervous disorder Depression Anxiety Surgical History Hx of colonoscopy No pertinent past surgical history Social History Housing: Other (retirement ) Housing Other:: retirement Alcohol intake: former Patient Tobacco Use Status: Current everyday Tobacco user Tobacco use type: Cigarette Cigarettes Per Day: 0.5 Years Smoked: Patient states over 12 years. e-Cigarette/Vaping Use: Never Used service: No Current occupational status: unemployed Cognitive needs: No Hearing needs: Yes Vision needs: Yes Review of Systems Const All systems reviewed & are unremarkable except as noted in HPI and below Physical Exam Vital Signs: Last Vital Signs Pulse 79 07/14/24 11:03 BP 129/67 07/14/24 11:03 BMI result Body Mass Index 24.9 No apparent distress Nonicteric Abdomen soft, nondistended Alert and oriented x3, normal gait Assessment & Plan Assessment & Plan (1) Personal history of colonic polyps: Code(s): Z86.0100 - Personal history of colon polyps, unspecified Category: Medical Plan Pt aware of need for rpeeat colonoscopy due to polyp burden. Plan: - [place] to be booked - PEG Rxed as per pt preference - Instructions reviewed with the help of asl interpreter and handed to the retirementoccupational therapist home based in written. Follow up PRN after colo. Medications: New peg 3350-electrolytes 236-22.74-6.74 -5.86 gram (Golytely) as per split prep instructions, until fecal effluent is clear 240 mL PO Q10M 4,000 mL 0RF colonoscopy Coding Level of Care Code Est Pt Level 3 (05762) Diagnoses Personal history of colonic polyps Z86.0100
[2024-07-14 11:03] VITALS: BP 129/67; PULSE 79; BMI 24.9
== END 2024-07-14 16:44 | disposition home or self-care (01) ==
PROVIDERS: PCP Nurse Practitioner Family; Visit Provider Internal Medicine
DX: Z86.0100 Personal history of colon polyps, unspecified (principal)
CPT/HCPCS: 99213

== ENCOUNTER → 2024-07-14 10:59 | Outpatient (BNVA) | payer MEDICARE, MEDICAID, SELFPAY | PROVIDERS: PCP Nurse Practitioner Family; Visit Provider Internal Medicine | DX: Z01.818 Encounter for other preprocedural examination (principal); Z86.0100 Personal history of colon polyps, unspecified | CPT/HCPCS: 99212 ==

== ENCOUNTER 2024-07-16 08:13 | Outpatient (AMB) | payer MEDICARE, MEDICAID, SELFPAY ==
--- NOTE | 2024-07-16 08:20 | A.OFFPC_ITS ---
Vital Signs 07/16/24 08:29 Height 5 ft 6 in Weight 159 lb BMI 25.7 BP 112/56 L Blood Pressure Location Lt brachial Position Sitting Respiration 14 Pulse 71 Pulse Source Pulse Oximeter Pulse Oximetry (%) 97 Oxygen Delivery Method Room Air Intake Visit Reasons: CPE Intake Note: Physical. Requesting referral to ENT Reproduction Order Processor Required: No Reproduction Order Processor Name: printing roller polisher declined Accompanied by: Other Relationship Allergies No Known Allergies [No Known Allergies*] Allergy (Verified 07/16/24 08:38) Medication List - Last Reconciled 07/16/24 by Kamaljit Nath CNP acetaminophen 650 mg (2 x 325 mg) PO Q6H PRN albuterol sulfate 90 mcg/actuation (Ventolin HFA) 2 puffs inhalation Q6H PRN 30 days apremilast (Otezla) 30 mg PO BID buspirone 10 mg PO BID ciclopirox 0.77% 1 appl topical ONCE 4 weeks ciclopirox 8% 1 appl topical BEDTIME escitalopram oxalate (Lexapro) 20 mg PO .twice daily gabapentin 400 mg (1/2 x 800 mg) PO TID gabapentin (Neurontin) 400 mg PO TID magnesium hydroxide (Milk of Magnesia) 30 mL PO .q 72 hours PRN 30 days melatonin 3 mg PO BEDTIME ufqabruk-ska-vyixhjy sulfate 4.5 mg iron (One Daily Multivitamins with Minerals) tabs PO multivitamin 1 tab PO DAILY naltrexone mg PO DAILY risperidone 1 mg PO DAILY risperidone 2 mg PO BEDTIME tacrolimus 0.1% (Protopic) 1 appl topical BID trazodone 75 mg PO vitamin E (dl, acetate) mg PO DAILY Tobacco use date assessed: 09/15/23 Dental Screening Dental Screen Date: 09/15/23 Did you have a dental visit in the last 12 months?: No Did you have a dental problem in the last 6 months where you did not have access to dental care?: No Was dental information given to patient?: Patient has dentist HPI HPI Comments History of Present Illness Details 73-year-old Luxembourger speaking male, accom panied by custodial staff, present for an extended physical exam. Acute issue(s) - Reports diminished hearing to both ear for the past 4 months - Requests podiatry appointment for long toenails and callus to his feet - Notes that anxiety and depression are well controlled. Requests referral to a Luxembourger-speaking therapist for anxiety and depression Past Medical History - Anxiety - Depression - Hearing loss - Callus of foot Social History - Smokes 3 cigarettes daily, has been sm oking for about 53 years. Does not vape. Does not drink alcohol, quit 6 months ago. Denies recreational drug use - Does not make healthy dietary choices. Active but does not sleep well. Generally sleep well Health maintenance - Last eye exam was early last year. Enc ouraged to schedule an appointment with his professor of religious studies for routine eye care - Last dental visit was in 2022. He has a dentist appointment scheduled in 08/2024 - Last tetanus vaccine was when he was a t a group home 3 years ago. He will obtain his vaccination record and provide to his PCP - Shingles vaccine status unknown. He wi ll review his record and update as needed. He may get the vaccine from his local pharmacy - He notes that he is up-to-date on PNA vaccines. He will obtain his vaccination record and provide to his PCP - He notes that he is up-to-date on the flu vaccine - Last colonoscopy was on 09/09/2023: Tubu lar adenoma: Encouraged to schedule repeat colonoscopy as recommended in a year from last colonoscopy [facility] gastroenterology Psychiatrist every 3 months via telehealth Interpretation by custodial staff per patient's preference [facility] Medical History Smoker Nervous disorder Depression Anxiety Surgical History Hx of colonoscopy No pertinent past surgical history Social History Housing: Other (custodial ) Housing Other:: custodial Alcohol intake: former Patient Tobacco Use Status: Current everyday Tobacco user Tobacco use type: Cigarette Cigarettes Per Day: 0.5 Years Smoked: Patient states over 12 years. e-Cigarette/Vaping Use: Never Used service: No Current occupational status: unemployed Cognitive needs: No Hearing needs: Yes Vision needs: Yes Questionnaire PHQ-9 Over the last 2 weeks, how often have you been bothered by any of the following problems? 1. Little interest or pleasure in doing things: several days 2. Feeling down, depressed, or hopeless: several days 3. Trouble falling or staying asleep, or sleeping too much: nearly every day 4. Feeling tired or having little energy: several days 5. Poor appetite or overeating: not at all 6. Feeling bad about yourself - or that you are a failure or have let yourself or your family down: several days 7. Trouble concentrating on things, such as reading the newspaper or watching television: several days 8. Moving or speaking so slowly that other people could have noticed. Or the opposite - being so fidgety or restless that you have been moving around a lot more than usual: nearly every day 9. Thoughts that you would be better off or of hurting yourself in some way: not at all Total score: 11 Depression Screening Interpretation: Positive Depression Screening Follow-up: Existing condition and In treatment Depression Screening Done: Yes 06912 - PHQ-9 Billing: Yes Source: Developed by Drs. Stefano Rajan, Maria Dolores Multani, Kaden Oscar and colleagues, with an educational juan from [employer]. Thrive Questionnaire Date Thrive assessed: 08/05/23 AUDIT C Alcohol Use Questionnaire (AUDIT-C) 1. How often do you have a drink containing alcohol?: Never (Quit drinking 6 months ago) Total Score: 0 CARIE-7 AMB Questionnaire CARIE-7 Date CARIE - 7 assessed: 09/15/23 Feeling nervous, anxious, or on edge: 0 = Not at all Not being able to stop or control worryin = Not at all Worrying too much about different things: 0 = Not at all Trouble relaxin = Nearly every day Being so restless that it is hard to sit still: 3 = Nearly every day Becoming easily annoyed or irritable: 0 = Not at all Feeling afraid as if something awful might happen: 0 = Not at all Total CARIE-7 score (0-4 normal; 5-9 mild; 10-14 moderate; 15-21 severe): 6 Source: Developed by Drs. Stefano Rajan, Maria Dolores Multani, Kaden Oscar and colleagues, with an educational juan from [employer]. Review of Systems Const Details: Denies chills, Denies fatigue, Denies fever(s), Denies headache(s) and Denies weakness HEENT Denies change in vision, Denies dizziness, Denies headache(s), Reports hearing loss, Denies nasal congestion, Denies sinus pain, Denies sinus pressure and Denies sore throat Card Denies chest pain, Denies lightheadedness, Denies dyspnea and Denies other (palpitations) Resp Denies cough, Denies dyspnea and Denies wheezing GI Denies abdominal pain, Denies melena, Denies hematochezia, Denies change in bowel habits, Denies dyspepsia and Denies nausea Denies hematuria and Denies dysuria Musc Denies abnormal gait, Denies myalgias, Denies arthralgias, Denies numbness and Denies tingling Skin/Breast Denies rash, Denies unusual bruising and Denies wounds Neuro Denies abnormal gait, Denies dizziness, Denies headache(s), Denies memory loss, Denies numbness, Denies Sensory deficit (Neuro), Denies tingling and Denies weakness Psych Denies anxiety, Denies depression and Denies memory loss Endo Denies cold intolerance, Denies fatigue, Denies heat intolerance, Denies polydipsia and Denies polyuria Bo/Lymph Denies easy bleeding and Denies easy bruising Aller/Immun Denies wheezing Physical exam (Primary Care) Vital Signs: Last Vital Signs Pulse 71 07/16/24 08:29 Resp 14 07/16/24 08:29 BP 112/56 L 07/16/24 08:29 Pulse Ox 97 07/16/24 08:29 Oxygen Delivery Method Room Air 07/16/24 08:29 BMI result Body Mass Index 25.7 Tobacco/Smoking Status: Tobacco use Status Tobacco use date assessed 09/15/23 07/16/24 08:32 Patient Tobacco Use Status Current everyday Tobacco 07/16/24 08:32 Tobacco use type Cigarette 07/16/24 08:32 e-Cigarette/Vaping Use Never Used 07/16/24 08:32 PHQ-9: PHQ-9 Score PHQ-9: Total score 11 07/16/24 13:08 Depression Screening Interpretation: Positive Depression Screening Follow-up: Existing condition and In treatment Thrive Assessment: Date of Thrive Assessment Date Thrive assessed 08/05/23 07/16/24 08:32 Const Other: General: no acute distress, well developed, alert and awake Nutritional Appearance: well nourished Orientation/consciousness: patient oriented x3 HENMT Head: Yes normocephalic and Yes atraumatic Ears: hearing grossly normal bilaterally and TM's normal bilaterally General nose exam: Normal external nose present and Normal nares present Mouth: Normal oral and palatal mucosa present and moist mucous membranes Teeth and gingiva: Endentulous Throat: Yes oropharynx normal Eyes Pupils: Equal, round and reactive pupils present and Pupil accommodation reflex normal EOM: EOMs intact bilaterally Neck Neck: Yes normal visual inspection, Yes no lymphadenopathy and Yes trachea midline Thyroid: Thyroid normal Carotids: no bruits Lymphatic: no lymphadenopathy noted Chest Chest palpation & inspection: normal inspection of the chest Resp Effort & Inspection: normal respiratory effort Auscultation: clear to auscultation bilaterally Cardio Rate: regular rate Rhythm: regular rhythm Heart sounds: S1 normal heart sound present, S2 normal heart sound present, no gallops, no murmurs and no rubs Bruits: no abdominal aortic bruits and no carotid bruits GI Palpation (GI): No Abdominal aortic bruit present, Soft to palpation, nontender, No hepatosplenomegaly present and No Rebound tenderness present Auscultation: normal bowel sounds General: Yes no CVA tenderness Back/Spine/Pelvis Back: no CVA tenderness Cervical Spine: cervical ROM normal and No Cervical spine tenderness Thoracic/Lumbar Spine: thoraco-lumbar ROM normal, No pain with thoraco-lumbar ROM, No thoracic spinal tenderness and No lumbar spinal tenderness Skin General: warm and dry. Normal skin color. Normal skin turgor. Calluses noted to the sole of both feet Lesions: no lesions Rashes: no rashes Trauma: no lacerations or abrasions Wounds: no wounds Nails: Long toenails to both feet Neuro General: patient oriented x3, gait normal and CN's II-XI intact bilaterally Cranial nerves: Yes Equal, round and reactive pupils present Cognition (Neuro): normal cognition Gait exam (Neuro): Normal gait present Motor exam (neuro): 5/5 motor strength present throughout Sensory Exam: No Sensory deficit (Neuro) Deep tendon reflexes (DTR's): Right patellar reflex intensity grade: 2+ and Left patellar reflex intensity grade: 2+ Extrem General: Yes normal to inspection, No edema and No calf tenderness Psych Appearance: grossly normal Affect: normal affect Attitude: cooperative Thought process: Normal thought process present Coding Level of Care Code Est Pt Level 4 (88138) Est Pt Prev Care >65y(48913) Diagnoses Normal physical examination, routine Z00.00 Callus of foot L84 Hearing loss H91.90 Anxiety F41.9 Depression F32.9 Smoking hx Z87.891 Poor nutrition E63.9 Laboratory examination ordered as part of a routine general medical examination Z00.00 Additional Codes PHQ-9 - 04679 - PHQ-9 Billing: Yes ([id number]) Assessment & Plan Assessment & Plan (1) Normal physical examination, routine: Code(s): Z00.00 - Encounter for general adult medical examination without abnormal findings Category: Medical Plan: No significant functional limitation noted. Advised to get get lab work done and follow-up in 2-3 weeks for telehealth visit for labs review. Verbalized understanding and agreed with treatment plan. (2) Callus of foot: Code(s): L84 - Corns and callosities Category: Medical Plan: Calluses noted to the sole of both feet. Long toenails noted. Referred to Podiatry. (3) Hearing loss: Code(s): H91.90 - Unspecified hearing loss, unspecified ear Category: Medical Plan: Reports diminished hearing to both ears for the past 4 months. He has history of hearing loss. Requests referral to a specialist. Bilateral ear canal and TM are normal. Referred to audiology for hearing test. Follow-up with worsening or new symptoms. Verbalized understanding and agreed with the plan. (4) Anxiety: Code(s): F41.9 - Anxiety disorder, unspecified Category: Medical Plan: Anxiety and depressive symptoms are generally well controlled. Sleep is also generally well controlled. Continue current treatment regimen. Routine exercise encouraged. Follow-up with psychiatrist as planned. Message sent for CHW to referred the patient to a Luxembourger-speaking specialist. Verbalized understanding and agreed with treatment plan. (5) Depression: Code(s): F32.9 - Major depressive disorder, single episode, unspecified Category: Medical Plan: Plan as above. (6) Smoking hx: Code(s): Z87.891 - Personal history of nicotine dependence Category: Medical Plan: He smokes 3 cigarettes daily, and has been smoking for about 53 years. Instructed on the health risks and complications of cigarette smoking. Smoking cessation encouraged. Declines treatment for smoking cessation and notes that he will stop smoking without medication. Advised to follow-up as needed. (7) Poor nutrition: Code(s): E63.9 - Nutritional deficiency, unspecified Category: Medical Plan: He makes unhealthy dietary choices. He is active but does not exercise. Declines referral to steam oven operator or weight management at this time. Healthy diet and routine exercise encouraged. Follow-up as needed. Verbalized understanding and agreed with the plan. (8) Laboratory examination ordered as part of a routine general medical examination: Code(s): Z00.00 - Encounter for general adult medical examination without abnormal findings Category: Medical Plan: Fasting labs ordered as part of a complete physical exam. Advised to fast for at least 10 hours before getting labs drawn. May drink water Verbalized understanding and agreed with treatment plan. Orders: Orders Comprehensive [place]. Panel Fast Today Z00.00 - Encounter for general adult medical examination without abnormal findings TSH reflex Free T4 Today Z00.00 - Encounter for general adult medical examination without abnormal findings UA CC w/rflx Micro + Cult Today Z00.00 - Encounter for general adult medical examination without abnormal findings PSA, Ultra Sensitive Today Z00.00 - Encounter for general adult medical examination without abnormal findings Complete Blood Count Auto Diff Today Z00.00 - Encounter for general adult medical examination without abnormal findings Lipid Panel Today Z00.00 - Encounter for general adult medical examination without abnormal findings Microalbumin, Random (w Creat) Today Z00.00 - Encounter for general adult medical examination without abnormal findings Referrals Podiatry Referral L84 - Corns and callosities Audiology Referral H91.90 - Unspecified hearing loss, unspecified ear
[2024-07-16 08:29] VITALS: BP 112/56; PULSE 71; RESP 14; O2SAT 97; BMI 25.7
== END 2024-07-16 09:02 | disposition home or self-care (01) ==
PROVIDERS: PCP Nurse Practitioner Family; Visit Provider Nurse Practitioner Family
DX: Z00.00 Encounter for general adult medical examination without abnormal findings (principal); L84 Corns and callosities; H91.93 Unspecified hearing loss, bilateral; F41.9 Anxiety disorder, unspecified; F32.9 Major depressive disorder, single episode, unspecified; Z87.891 Personal history of nicotine dependence; E63.9 Nutritional deficiency, unspecified

== ENCOUNTER → 2024-07-16 08:13 | Outpatient (BNVA) | payer MEDICARE, MEDICAID, SELFPAY | PROVIDERS: PCP Nurse Practitioner Family; Visit Provider Nurse Practitioner Family | DX: Z00.00 Encounter for general adult medical examination without abnormal findings (principal); L84 Corns and callosities; H91.90 Unspecified hearing loss, unspecified ear; F41.9 Anxiety disorder, unspecified; F32.9 Major depressive disorder, single episode, unspecified; E63.9 Nutritional deficiency, unspecified; Z87.891 Personal history of nicotine dependence | CPT/HCPCS: 96127; 99212; 99397 ==

== ENCOUNTER 2024-08-02 08:03 | Inpatient (IN) | payer MEDICARE, MEDICAID, SELFPAY ==
--- NOTE | 2024-08-02 08:02 | ED_ITS ---
HPI - Fall General Stated Complaint: SI,NO SLEEP ALL NIGHT,NO MEDS TAKEN,FROM [facility] Source: patient and EMS Mode of arrival: EMS Limitations: no limitations History of Present Illness HPI Narrative: This is a juan diego 74 years old the patient presented to the emergency department after a fall. She was cutting the recycling bin tripped and fell she has a laceration of the forehead no LOC no neck pain. She arrived with a c collar on MD complaint: fall Onset (ago): hour(s) (1) Fall witnessed: no Loss of consciousness: none Prolonged down time: no Symptoms prior to fall: none Context: tripped/slipped Severity: mild Quality: burning Related Data Home Medications ?Medication ?Instructions ?Recorded ?Confirmed apremilast 30 mg tablet (Otezla) 30 mg PO BID 03/05/23 07/16/24 risperidone 1 mg tablet 1 mg PO DAILY 03/05/23 07/16/24 risperidone 2 mg tablet 2 mg PO BEDTIME 03/05/23 07/16/24 escitalopram oxalate 20 mg tablet 20 mg PO .twice daily 09/15/23 07/16/24 (Lexapro) tacrolimus 0.1 % topical ointment 1 appl topical BID 09/15/23 07/16/24 (Protopic) multivitamin with minerals-ferrous tab PO 07/14/24 sulfate 4.5 mg iron tablet (One Daily Multivitamins with Minerals) naltrexone 50 mg tablet mg PO DAILY 07/14/24 07/16/24 vitamin E (dl, acetate) 180 mg mg PO DAILY 07/14/24 07/16/24 (400 unit) capsule buspirone 10 mg tablet 10 mg PO BID 07/16/24 07/16/24 ciclopirox 8 % topical solution 1 appl topical BEDTIME 07/16/24 07/16/24 gabapentin 400 mg capsule 400 mg PO TID 07/16/24 07/16/24 (Neurontin) multivitamin 1 tab PO DAILY 07/16/24 07/16/24 trazodone 100 mg tablet 75 mg PO 07/16/24 07/16/24 Previous Rx's ?Medication ?Instructions ?Recorded gabapentin 800 mg tablet 400 mg (1/2 x 800 mg) PO TID #45 05/17/21 tabs melatonin 3 mg tablet 3 mg PO BEDTIME #30 tabs 05/17/21 ciclopirox 0.77 % topical gel 1 appl topical ONCE 4 weeks #30 07/16/22 grams acetaminophen 325 mg tablet 650 mg (2 x 325 mg) PO Q6H PRN for 12/02/22 moderate pain, headache and temp of >101 #30 tabs albuterol sulfate 90 mcg/actuation 2 puff inhalation Q6H PRN 05/28/23 aerosol inhaler (Ventolin HFA) shortness of breath or wheezing 30 days #8.5 grams magnesium hydroxide 400 mg/5 mL 30 ml PO .q 72 hours PRN for 05/28/23 oral suspension (Milk of Magnesia) constipation or bowel assist 30 days #355 mL Allergies Allergy/AdvReac Type Severity Reaction Status Date / Time Sulfa (Sulfonamide AdvReac Mild Unknown Unverified 08/02/24 08:01 Antibiotics) Review of Systems Constitutional: Constitutional: Reports no additional constitutional complaints Cardiovascular: Cardiovascular: Reports no additional cardiovascular complaints [facility] Past Medical History [facility] Narrative: History of asthma, history of pulmonary fibrosis, history of hypothyroidism, elevated cholesterol Medical History (Updated 07/16/24 @ 13:20 by Kamaljit Nath CNP) Smoker Nervous disorder Depression Anxiety Surgical History Hx of colonoscopy No pertinent past surgical history Physical Exam Vital Signs: No acute distress Const: General: cooperative Nutritional Appearance: well nourished Orientation/consciousness: patient oriented x3 HEENT: Other: Laceration of the forehead about 5 cm longitudinal Head: Yes normal to inspection Ears: hearing grossly normal bilaterally General nose exam: Normal external nose present Face and sinus: Yes other (Laceration has a bone 5 cm longitudinal) Mouth: Normal oral and palatal mucosa present Teeth and gingiva: dentition normal Throat: Yes posterior oropharynx normal Neck: Other: C-collar on Thyroid: Thyroid normal Chest: Chest palpation & inspection: normal inspection of the chest Resp: Effort & Inspection: normal respiratory effort Auscultation: clear to auscultation bilaterally Cardio: Rate: regular rate Rhythm: regular rhythm GI: Inspection: Yes normal to inspection Palpation (GI): Soft to palpation, not firm and nontender Auscultation: normal bowel sounds Skin: General skin exam: no rashes or lesions noted Neuro: General: patient oriented x3 Cranial nerves: Yes CN's II-XII intact bilaterally Extrem: General: Yes normal to inspection Right upper extremity: normal to inspection Medical Decision Making Medical Decision Making MDM Narrative: Patient presented after a fall with a laceration in the forehead Differential Diagnosis Differential Diagnoses: The differential diagnosis associated with the presen tation includes Subdural hematoma epidural hematoma cervical spine Discharge Plan Discharge Print Language: [place]ican
[2024-08-02 08:25] VITALS: BP 126/74; BP 146/72; PULSE 78; PULSE 96; RESP 16; TEMP 36.6; O2SAT 97; O2SAT 98; BMI 25.2
--- NOTE | 2024-08-02 08:26 | ED.PSYCH ---
HPI - Psych General Chief Complaint: Psychiatric Symptoms Stated Complaint: SI,NO SLEEP ALL NIGHT,NO MEDS TAKEN,FROM [facility] Source: patient Mode of arrival: EMS Limitations: no limitations History of Present Illness HPI Narrative: PATIENT PRESENTED WITH A SI HE IS COMING FROM A [facility] FEELS VERY DEPRESSED OR ANXIOUS complaint: suicidal ideation Onset (ago): day(s) (1) Duration: constant History of same: Yes Relieving factors: none Exacerbating factors: none Associated psychiatric symptoms: none and depression Associated symptoms: denies other symptoms Related Data Home Medications ?Medication ?Instructions ?Recorded ?Confirmed apremilast 30 mg tablet (Otezla) 30 mg PO BID 03/05/23 07/16/24 risperidone 1 mg tablet 1 mg PO DAILY 03/05/23 07/16/24 risperidone 2 mg tablet 2 mg PO BEDTIME 03/05/23 07/16/24 escitalopram oxalate 20 mg tablet 20 mg PO .twice daily 09/15/23 07/16/24 (Lexapro) tacrolimus 0.1 % topical ointment 1 appl topical BID 09/15/23 07/16/24 (Protopic) multivitamin with minerals-ferrous tab PO 07/14/24 sulfate 4.5 mg iron tablet (One Daily Multivitamins with Minerals) naltrexone 50 mg tablet mg PO DAILY 07/14/24 07/16/24 vitamin E (dl, acetate) 180 mg mg PO DAILY 07/14/24 07/16/24 (400 unit) capsule buspirone 10 mg tablet 10 mg PO BID 07/16/24 07/16/24 ciclopirox 8 % topical solution 1 appl topical BEDTIME 07/16/24 07/16/24 gabapentin 400 mg capsule 400 mg PO TID 07/16/24 07/16/24 (Neurontin) multivitamin 1 tab PO DAILY 07/16/24 07/16/24 trazodone 100 mg tablet 75 mg PO 07/16/24 07/16/24 Previous Rx's ?Medication ?Instructions ?Recorded gabapentin 800 mg tablet 400 mg (1/2 x 800 mg) PO TID #45 05/17/21 tabs melatonin 3 mg tablet 3 mg PO BEDTIME #30 tabs 05/17/21 ciclopirox 0.77 % topical gel 1 appl topical ONCE 4 weeks #30 07/16/22 grams acetaminophen 325 mg tablet 650 mg (2 x 325 mg) PO Q6H PRN for 12/02/22 moderate pain, headache and temp of >101 #30 tabs albuterol sulfate 90 mcg/actuation 2 puff inhalation Q6H PRN 05/28/23 aerosol inhaler (Ventolin HFA) shortness of breath or wheezing 30 days #8.5 grams magnesium hydroxide 400 mg/5 mL 30 ml PO .q 72 hours PRN for 05/28/23 oral suspension (Milk of Magnesia) constipation or bowel assist 30 days #355 mL Allergies Allergy/AdvReac Type Severity Reaction Status Date / Time Sulfa (Sulfonamide AdvReac Mild Unknown Verified 08/02/24 08:29 Antibiotics) Review of Systems Constitutional: Constitutional: Reports no additional constitutional complaints Cardiovascular: Cardiovascular: Reports no additional cardiovascular complaints Gastrointestinal: Gastrointestinal: Reports no additional gastrointestinal complaints Musculoskeletal: Musculoskeletal: Reports no additional musculoskeletal complaints Integumentary/Breasts: Skin/Breast: Reports system reviewed and no additional complaints, except as docu Neurologic: Reports system reviewed and no additional complaints, except as documented [facility] Past Medical History [facility] Narrative: DEPRESSION ANXIETY Medical History Smoker Nervous disorder Depression Anxiety Surgical History Hx of colonoscopy No pertinent past surgical history Social History Social History Housing: Other (skilled nursing ) Housing Other:: skilled nursing Alcohol intake: current Alcohol intake frequency: holidays/special occasions only Patient Tobacco Use Status: Current everyday Tobacco user Tobacco use type: Cigarette Cigarettes Per Day: 0.5 Years Smoked: Patient states over 12 years. Smoked in Last 30 Days: Yes e-Cigarette/Vaping Use: Never Used Use of substances other than those prescribed or required for medical reasons: Yes Substance Use Type: Marijuana Advance Directives: No Advance Directives Information Provided: No service: No Current occupational status: unemployed Cognitive needs: No Hearing needs: Yes Vision needs: Yes Physical Exam Vital Signs: Vital Signs: Last Vital Signs Temp 97.8 F 08/02/24 08:25 Pulse 78 08/02/24 08:25 Resp 16 08/02/24 08:31 BP 126/74 08/02/24 08:25 Pulse Ox 98 08/02/24 08:25 O2 Del Method Room Air 08/02/24 08:25 BMI result Body Mass Index 25.2 Const: General: cooperative, comfortable and no acute distress Orientation/consciousness: patient oriented x3 Limitations: no limitations HEENT: Head: Yes normal to inspection Ears: hearing grossly normal bilaterally General nose exam: Normal external nose present Face and sinus: Yes normal facial exam Mouth: Normal oral and palatal mucosa present Throat: Yes posterior oropharynx normal Neck: Neck: Yes normal visual inspection and Yes full ROM Chest: Chest palpation & inspection: normal inspection of the chest Resp: Effort & Inspection: normal respiratory effort Auscultation: clear to auscultation bilaterally Cardio: Jugular venous distension: no JVD Rate: regular rate Rhythm: regular rhythm GI: Inspection: Yes normal to inspection Palpation (GI): Soft to palpation, not firm and nontender Percussion: Yes normal to percussion Auscultation: normal bowel sounds Skin: General skin exam: no rashes or lesions noted Lesions: no lesions Rashes: no rashes Neuro: General: patient oriented x3 Course Reevaluation(s) Reevaluation #1: Patient was seen by crisis the patient will be inpatient level of care Time: 12:11 Medications Administered Discontinued Medications Generic Name Dose Route Start Last Admin Trade Name Freq PRN Reason Stop Dose Admin Lorazepam 1 mg 08/02/24 08:29 08/02/24 09:09 Lorazepam 1 Mg Tablet PO 08/02/24 08:30 1 mg ONCE ONE Administration Medical Decision Making Medical Decision Making [facility] Narrative: PATIENT PRESENTED WITH DEPRESSION WE WILL OBTAIN PSYCH EVAL Differential Diagnosis Differential Diagnoses: The differential diagnosis associated with the presentation includes SI DEPRESSION Admission/Observation Consideration of admission/observation: Escalation of care including admission/observation considered Lab Data 08/02/24 09:31 08/02/24 09:31 Labs: Lab Results 08/02/24 Range/Units 09:31 WBC 8.9 (4.8-10.8) X10*3/uL RBC 5.00 (4.60-5.80) X10*6/uL Hgb 15.0 (14.0-18.0) g/dl Hct 45.4 (42.0-52.0) % MCV 90.8 (80.0-98.0) fL MCH 30.0 (27.0-33.0) pg MCHC 33.0 (31.0-36.0) g/dl RDW 12.8 (11.0-16.0) % Plt Count 222 (160-400) X10*3/uL MPV 9.0 L (9.4-12.4) fL Immature Gran % (Auto) 0.3 (0.0-0.4) % Neut % (Auto) 72.0 (45-73) % Lymph % (Auto) 19.7 L (20-40) % [place] % (Auto) 6.6 (2-11) % Eos % (Auto) 1.1 (0-4) % Baso % (Auto) 0.3 (0-2) % Lymph # (Auto) 1.8 (1.2-4.9) X10*3/uL [place] # (Auto) 0.6 (0.1-1.2) X10*3/uL Eos # (Auto) 0.1 (0.0-0.4) X10*3/uL Baso # (Auto) 0.0 (0.0-0.2) X10*3/uL Abs Immat Gran (auto) 0.03 (0.00-0.03) X10*3/uL Absolute Neuts (auto) 6.4 (2.0-8.3) x10*3/uL Absolute Nucleated RBC 0.000 (0.0-0.012) X10*3/uL Nucleated RBC % (auto) 0.0 (0.0-0.2) /100WBC Sodium 142 (135-145) mmol/L Potassium 4.3 (3.3-5.1) mmol/L Chloride 106 (96-108) mmol/L Carbon Dioxide 28 (22-29) mmol/L Anion Gap 12 (12-20) BUN 9 (9-16) mg/dL Creatinine 0.86 (0.5-1.4) mg/dL Estim Creat Clear Calc 73.6 Estimated GFR > 60 Random Glucose 115 (60-115) mg/dL Calcium 9.1 (8.4-10.2) mg/dL Total Bilirubin 1.1 H (0.0-1.0) mg/dL AST 28 (5-37) U/L ALT 23 (0-40) U/L Alkaline Phosphatase 67 (39-117) U/L Total Protein 7.8 (6.5-8.0) g/dL Albumin 4.4 (3.5-5.0) g/dL Urine Opiates Screen Not Detected (Not Detect) Ur Buprenorphine Scrn Not Detected (Not Detect) ng/mL Ur Oxycodone Screen Not Detected (Not Detect) ng/mL Urine Methadone Screen Not Detected (Not Detect) ng/mL Urine Fentanyl Screen Not Detected (Not Detect) Ur Barbiturates Screen Not Detected (Not Detect) Ur Phencyclidine Scrn Not Detected (Not Detect) Ur Amphetamines Screen Not Detected (Not Detect) U Benzodiazepines Scrn Not Detected (Not Detect) Urine Cocaine Screen Not Detected (Not Detect) U Marijuana (THC) Screen POSITIVE H (Not Detect) Ethyl Alcohol < 10 mg/dL Discharge Plan Discharge Clinical Impression: Depression Prescriptions: No Action gabapentin 800 mg tablet 400 mg PO TID Qty: 45 3RF melatonin 3 mg tablet 3 mg PO BEDTIME Qty: 30 3RF acetaminophen 325 mg tablet 650 mg PO Q6H PRN (Reason: for moderate pain, headache and temp of >101) Qty: 30 11RF Rx Instructions: not to exceed 3000 mg in 24 hours if symptoms persist over 48 hours notify albuterol sulfate [Ventolin HFA] 90 mcg/actuation HFA aerosol inhaler 2 puff inhalation Q6H PRN (Reason: shortness of breath or wheezing) 30 Days Qty: 8.5 4RF magnesium hydroxide [Milk of Magnesia] 400 mg/5 mL suspension 30 ml PO .q 72 hours PRN (Reason: for constipation or bowel assist) 30 Days Qty: 355 5RF Rx Instructions: If no results after 24 hours from dose, contact PCP ciclopirox 0.77 % gel 1 appl topical ONCE 28 Days Qty: 30 0RF escitalopram oxalate [Lexapro] 20 mg tablet 20 mg PO .twice daily tacrolimus [Protopic] 0.1 % ointment 1 appl topical BID risperidone 1 mg tablet 1 mg PO DAILY risperidone 2 mg tablet 2 mg PO BEDTIME Otezla 30 mg tablet 30 mg PO BID naltrexone 50 mg tablet PO DAILY vitamin E (dl, acetate) 180 mg (400 unit) capsule PO DAILY One Daily Multi-Vit w-Mineral 4.5 mg iron tablet PO trazodone 100 mg tablet 75 mg PO multivitamin Tablet 1 tab PO DAILY buspirone 10 mg tablet 10 mg PO BID gabapentin [Neurontin] 400 mg capsule 400 mg PO TID ciclopirox 8 % solution 1 appl topical BEDTIME Interventions: [place]-Suicide Risk Severity Scale Last Done: 08/02/24 08:34 Print Language: Emirati
[2024-08-02 08:31] VITALS: RESP 16
--- NOTE | 2024-08-02 08:52 | MHC.EDTECH ---
patient changed over ,belongings list done and items in [facility]
[2024-08-02] MEDS: LORazepam 1 MG TABLET PO (09:09)
--- NOTE | 2024-08-02 09:13 | ECG_ITS ---
Test Reason : Chest Pain Blood Pressure : */* mmHG Vent. Rate : 76 BPM Atrial Rate : 76 BPM P-R Int : 164 ms QRS Dur : 86 ms QT Int : 384 ms P-R-T Axes : 60 1 40 degrees QTcB Int : 432 ms Normal sinus rhythm Normal ECG When compared with ECG of 02-Oct-2021 10:23, No significant change was found Referred By: Jairo Pelletier Electronically Signed By: ELI MILLER MD
[2024-08-02 09:37] LABS: MANUAL DIFF FLAG NO
[2024-08-02 09:38] LABS: Basophils Percent Auto 0.3 % (0-2); Eosinophils Absolute Auto 0.1 X10*3/uL (0.0-0.4); Eosinophils Percent Auto 1.1 % (0-4); Hematocrit 45.4 % (42.0-52.0); Imm Gran Abs Auto 0.03 X10*3/uL (0.00-0.03); Imm Gran Pct Auto 0.3 % (0.0-0.4); Lymphocytes Absolute Auto 1.8 X10*3/uL (1.2-4.9); Lymphocytes Percent Auto 19.7 % (20-40); Mean Corpuscular Volume 90.8 fL (80.0-98.0); Monocytes Absolute Auto 0.6 X10*3/uL (0.1-1.2); Monocytes Percent Auto 6.6 % (2-11); Neutrophils Absolute Auto 6.4 x10*3/uL (2.0-8.3); Platelet Count 222 X10*3/uL (160-400); Red Cell Distribution Width 12.8 % (11.0-16.0); White Blood Count 8.9 X10*3/uL (4.8-10.8)
[2024-08-02 09:47] LABS: Amphetamine Screen Urine Not Detected (Not Detect); Barbiturates, Urine Not Detected (Not Detect); Benzodiazepines Screen Urine Not Detected (Not Detect); Buprenorphine Scr Not Detected (Not Detect); Cannabinoid Screen Urine POSITIVE (Not Detect); Cocaine Screen Urine Not Detected (Not Detect); Fentanyl, urine Not Detected (Not Detect); Methadone Screen, Urine Not Detected (Not Detect); Opiate Screen Urine Not Detected (Not Detect); Oxycodone Screen Urine Not Detected (Not Detect); Phencyclidine Screen Urine Not Detected (Not Detect)
[2024-08-02 09:53] LABS: Alanine Aminotransferase 23 U/L (0-40); Albumin Level 4.4 g/dL (3.5-5.0); Alkaline Phosphatase 67 U/L (39-117); Anion Gap 12 (12-20); Aspartate Amino Transferase 28 U/L (5-37); Bilirubin Total 1.1 mg/dL (0.0-1.0); Blood Urea Nitrogen 9 mg/dL (9-16); Calcium 9.1 mg/dL (8.4-10.2); Carbon Dioxide 28 mmol/L (22-29); Chloride 106 mmol/L (96-108); Creatinine Clr Calc Pharmacy 73.6; Estimated Glomerular Filt Rate > 60; Glucose Random 115 mg/dL (60-115); Potassium 4.3 mmol/L (3.3-5.1); Sodium 142 mmol/L (135-145); Total Protein 7.8 g/dL (6.5-8.0)
[2024-08-02 11:15] LABS: Ethanol < 10 mg/dL
--- NOTE | 2024-08-02 11:53 | PC.NURSE ---
Being assessed by N at this time
[2024-08-02 12:34] VITALS: BP 119/59; PULSE 77; RESP 20; TEMP 36.8; O2SAT 97
[2024-08-02 12:42] LABS: Appearance Urine Clear; Color Urine Dark Yellow; Glucose Urine UA Negative (Negative); Leukocyte Esterase Urine Negative (Negative); Nitrite Urine Negative (Negative); PH 6.5 (5.0-9.0); Specific Gravity - Urine 1.015 (1.005-1.025); Urine Blood Negative (Negative); Urine Ketones Negative (Negative); Urine Protein Negative (Neg-Trace)
[2024-08-02 16:38] VITALS: BP 150/57; PULSE 78; RESP 18; TEMP 36.6; O2SAT 97
[2024-08-02 17:55] LABS: Alanine Aminotransferase 18 U/L (0-40); Albumin Level 4.1 g/dL (3.5-5.0); Alkaline Phosphatase 62 U/L (39-117); Anion Gap 11 (12-20); Aspartate Amino Transferase 26 U/L (5-37); Bilirubin Total 0.6 mg/dL (0.0-1.0); Blood Urea Nitrogen 9 mg/dL (9-16); Calcium 8.9 mg/dL (8.4-10.2); Carbon Dioxide 29 mmol/L (22-29); Chloride 107 mmol/L (96-108); Creatinine Clr Calc Pharmacy 75.4; Estimated Glomerular Filt Rate > 60; Glucose Random 128 mg/dL (60-115); Potassium 3.8 mmol/L (3.3-5.1); Sodium 143 mmol/L (135-145); Total Protein 7.1 g/dL (6.5-8.0)
--- NOTE | 2024-08-02 18:17 | PC.ADMIT ---
Addendum entered by Bettie Melchor RN 08/02/24 19:08: Pt.'s friend Vy Juan updated about pt.'s admission per his request. Original Note: Pt. arrived on unit via WC at 15:25 escorted by security and this RN. Changeover with contraband search and skin assmt. performed with only significant finding of psoriatic skin patch inner L glut. data software engineer used for admission process. Pt. is a resident of a assisted who regularly uses ETOH and marijuana and has become increasingly paranoid about assisted staff. He is minimizing of his ETOH and marijuana use. No withdrawal sx. noted. He is oriented to person, day of the week, year, and that he is in a hospital. Pleasant and cooperative during admission process. States that the situation with the staff at his assisted has made him depressed and suicidal. Denies current SI or plan. States he feels much better here since he is away from the home and contracts for safety. He ambulates independently without assistive devices and had good balance and steady gait.
[2024-08-02 20:00] VITALS: BP 108/54; PULSE 59; RESP 16; TEMP 36.8; O2SAT 95
[2024-08-02] MEDS: Escitalopram Oxalate 20 MG TABLET PO (23:24)
[2024-08-02] MEDS: traZODone HCL 50 MG TABLET PO (23:24)
[2024-08-03 07:55] VITALS: BP 121/62; PULSE 68; RESP 16; TEMP 36.6; O2SAT 96
[2024-08-03] MEDS: risperiDONE 1 MG TABLET PO (08:07)
[2024-08-03] MEDS: Multivitamin TABLET 1 TAB PO (08:07)
[2024-08-03] MEDS: busPIRone HCl 5 MG TABLET PO ×2 (08:08→20:53)
[2024-08-03] MEDS: Gabapentin 100 MG CAPSULE PO ×3 (08:08→20:53)
[2024-08-03] MEDS: Escitalopram Oxalate 20 MG TABLET PO ×2 (08:08→20:53)
[2024-08-03] MEDS: Vitamin E (Dl,Tocopheryl Acet) 180 MG (400 UNIT) CAPSULE PO (08:08)
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
[2024-08-03 09:42] LABS: Estimated Average Glucose 114 mg/dL; Hemoglobin A1C 137.9837 umol/L; Hemoglobin A1c % 5.6 % (<6.0); Total Hemoglobin (HGBA1C) 3710.5723 umol/L
[2024-08-03 09:45] LABS: Cholesterol 130 mg/dL (<200); HDL Cholesterol 44 mg/dL (>40); LDL Cholesterol Calculated 76 mg/dL (<100); Triglycerides 54 mg/dL (<150)
[2024-08-03 10:00] LABS: Thyroid Stimulating Hormone 0.53 uIU/mL (0.32-4.0)
[2024-08-03 10:07] LABS: Vitamin B12 233 pg/mL (200-900)
[2024-08-03 20:00] VITALS: BP 127/57; PULSE 57; RESP 16; TEMP 36.2; O2SAT 95
[2024-08-03] MEDS: Melatonin 3 MG TABLET PO (20:53)
[2024-08-03] MEDS: risperiDONE 0.5 MG TABLET 1.5 MG PO (20:53)
[2024-08-04 07:55] VITALS: BP 115/68; PULSE 79; RESP 18; TEMP 36.9; O2SAT 98
[2024-08-04] MEDS: busPIRone HCl 5 MG TABLET PO ×2 (08:11→20:25)
[2024-08-04] MEDS: Escitalopram Oxalate 20 MG TABLET PO ×2 (08:11→20:25)
[2024-08-04] MEDS: Vitamin E (Dl,Tocopheryl Acet) 180 MG (400 UNIT) CAPSULE PO (08:11)
[2024-08-04] MEDS: Multivitamin TABLET 1 TAB PO (08:11)
[2024-08-04] MEDS: Gabapentin 100 MG CAPSULE PO ×3 (08:11→20:25)
[2024-08-04] MEDS: risperiDONE 1 MG TABLET PO (08:11)
--- NOTE | 2024-08-04 09:46 | HO.PSYCHPN ---
Subjective Subjective Date of Service: 08/04/24 Reason For Visit: Paranoia Subjective Notes: Conditional Voluntary Interim History: The nursing staff reported the patient had a rash, he had good appetite he feels safe here. The long term care social worker will try to arrange a meeting with her caregivers at the nursing home. On interview the patient reports that he does not trust his outpatient prescriber and he is scared of going back to his nursing home. Here he had been behaving very well. Mental Status Exam Mental Status Exam Patient Appearance: Well Grooomed and Appropriate Patient Orientation: Person and Situation Level of Consciousness: Awake and Appropriate Patient Behavior: Guarded Mood Description: Calm Affect Description: Constricted Patient Cognition Impaired: Yes Ability to Follow Directions: Good Speech Pattern: Clear Hallucinations: None Delusions: Paranoid Ideation and Ideas of Reference Thought Process: Distracted and Slowed Thinking Thought Content: positive for Gilbert and positive for Perseveration Judgement: Fair Diagnostics Vital Signs (24Hr): Vital Signs - 24 hr 08/03/24 20:00 Temperature 97.1 F Pulse Rate 57 Respiratory Rate 16 Blood Pressure 127/57 L Pulse Oximetry 95 Oxygen Delivery Method Room Air BMI result Body Mass Index 25.2 Labs 08/02/24 09:31 08/02/24 17:28 Labs: Laboratory Results - last 48 hr 08/02/24 08/02/24 08/03/24 09:31 17:28 08:13 Sodium 142 143 Potassium 4.3 3.8 Chloride 106 107 Carbon Dioxide 28 29 Anion Gap 12 11 L BUN 9 9 Creatinine 0.86 0.84 Estim Creat Clear Calc 73.6 75.4 Estimated GFR > 60 > 60 Random Glucose 115 128 H Estimat Average Glucose 114 Hemoglobin A1c % 5.6 Calcium 9.1 8.9 Total Bilirubin 1.1 H 0.6 AST 28 26 ALT 23 18 Alkaline Phosphatase 67 62 Total Protein 7.8 7.1 Albumin 4.4 4.1 Triglycerides 54 Cholesterol 130 LDL Cholesterol, Calc 76 HDL Cholesterol 44 Vitamin B12 233 TSH 0.53 Urine Color Dark Yellow Urine Appearance Clear Urine pH 6.5 Ur Specific [place] 1.015 Urine Protein Negative Urine Glucose (UA) Negative Urine Ketones Negative Urine Blood Negative Urine Nitrite Negative Ur Leukocyte Esterase Negative Urine Opiates Screen Not Detected Ur Buprenorphine Scrn Not Detected Ur Oxycodone Screen Not Detected Urine Methadone Screen Not Detected Urine Fentanyl Screen Not Detected Ur Barbiturates Screen Not Detected Ur Phencyclidine Scrn Not Detected Ur Amphetamines Screen Not Detected U Benzodiazepines Scrn Not Detected Urine Cocaine Screen Not Detected U Marijuana (THC) Screen POSITIVE H Ethyl Alcohol < 10 Medications Medications Current Medications Acetaminophen (Acetaminophen 325 Mg Tablet) 650 mg PO Q6H PRN PRN Reason: Headache/Pain, Scale 1-10 Al Hydroxide/Mg Hydroxide (Magnesium Hydrox/Alum Hydrox 30 Ml Oral.Susp) 30 ml PO Q6H PRN PRN Reason: Heartburn/Nausea Buspirone HCl (Buspirone Hcl 5 Mg Tablet) 5 mg PO BID [facility] Last Admin: 08/04/24 08:11 Dose: 5 mg Escitalopram Oxalate (Escitalopram Oxalate 20 Mg Tablet) 20 mg PO BID [facility] Last Admin: 08/04/24 08:11 Dose: 20 mg Gabapentin (Gabapentin 100 Mg Capsule) 100 mg PO TID [facility] Last Admin: 08/04/24 08:11 Dose: 100 mg Magnesium Hydroxide (Milk Of Magnesia 30 Ml Oral.Susp) 30 ml PO DAILY PRN PRN Reason: Constipation Melatonin (Melatonin 3 Mg Tablet) 3 mg PO BEDTIME [facility] Last Admin: 08/03/24 20:53 Dose: 3 mg Multivitamins/Vitamin C (Multivitamin Tablet) 1 tab PO DAILY [facility] Last Admin: 08/04/24 08:11 Dose: 1 tab Non-Formulary Medication (Apremilast [Otezla]) 30 mg PO BID [facility] Non-Formulary Medication (Ciclopirox) 1 appl TOPICAL BEDTIME [facility] Risperidone (Risperidone 1 Mg Tablet) 1 mg PO DAILY [facility] Last Admin: 08/04/24 08:11 Dose: 1 mg Risperidone (Risperidone 0.5 Mg Tablet) 1.5 mg PO BEDTIME [facility] Last Admin: 08/03/24 20:53 Dose: 1.5 mg Trazodone HCl (Trazodone Hcl 50 Mg Tablet) 50 mg PO BEDTIME PRN PRN Reason: Insomnia Last Admin: 08/02/24 23:24 Dose: 50 mg Vitamin E (Vitamin E (Dl,Tocopheryl Acet) 180 Mg (400 Unit) Capsule) 180 mg PO DAILY [facility] Last Admin: 08/04/24 08:11 Dose: 180 mg Allergies Allergies Allergy/AdvReac Type Severity Reaction Status Date / Time Sulfa (Sulfonamide AdvReac Mild Unknown Verified 08/02/24 08:29 Antibiotics) Assessment & Plan Assessment & Plan (1) Schizophrenia: Status: Acute Code(s): F20.9 - Schizophrenia, unspecified Plan The patient is an elderly Nigerien male with a past history of schizophrenia, chronically mentally ill with [facility] 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 The patient had been medically cleared and on the intake interview he was very paranoid against the staff members of his nursing home. Plan 1. 15 minute checks since the patient is able to contract for safety. 2. The patient is a very poor historian so we will need to gather more collateral information. 3. On admission it was not clear if the patient is on a court order for treatment over objection or if he has a guardian. The patient was willing to stay here and he signed a conditional voluntary. 4. Continue with psychotropics as per med reconciliation form. 5. Blood work with follow-up with the medical team. 6. Reassessment with results. Reason for continued inpatient stay Substantial Risk for: inability to function, rapid decompensation and med/psych decompensation Time Spent With Patient Time: Total time managing care of this patient today __20__ minutes.
[2024-08-04 20:00] VITALS: BP 104/50; PULSE 56; RESP 15; TEMP 36.9; O2SAT 95
[2024-08-04] MEDS: Melatonin 3 MG TABLET PO (20:25)
[2024-08-04] MEDS: risperiDONE 0.5 MG TABLET 1.5 MG PO (20:25)
[2024-08-05 08:00] VITALS: BP 132/62; PULSE 86; RESP 18; TEMP 36.4; O2SAT 96
[2024-08-05] MEDS: Multivitamin TABLET 1 TAB PO (08:10)
[2024-08-05] MEDS: Vitamin E (Dl,Tocopheryl Acet) 180 MG (400 UNIT) CAPSULE PO (08:11)
[2024-08-05] MEDS: risperiDONE 1 MG TABLET PO (08:11)
[2024-08-05] MEDS: Gabapentin 100 MG CAPSULE PO ×3 (08:11→20:36)
[2024-08-05] MEDS: Escitalopram Oxalate 20 MG TABLET PO (08:11)
[2024-08-05] MEDS: busPIRone HCl 5 MG TABLET PO ×2 (08:11→20:36)
--- NOTE | 2024-08-05 09:21 | P.PNPSI_ITS ---
Subjective Subjective Date of Service: 08/05/24 Reason For Visit: Paranoia Subjective Notes: Conditional Voluntary Interim History: Pt slept through the night. He reports he is doing well and denies suicidal or homicidal ideation. He reports he feels he is being [facility] the [facility]. He reports he goes to day program and he enjoys going there a lot. He reports there is a family member, Vy, who eventually may be wiling to let him stay with her. We discussed that he needs to return to [facility] and work with them to secure different housing arrangement, which he is in agreement with. When asked about hearing voices, pt reports he has heard voices of relatives but these are usually encouraging voices... don't give up He is visible on the unit, takes medications, attends groups. He is social with select peers. he reports hx of head injury comes from fall he had several years ago while intoxicated. Diagnostics Vital Signs (24Hr): Vital Signs - 24 hr 08/04/24 20:00 Temperature 98.4 F Pulse Rate 56 Respiratory Rate 15 Blood Pressure 104/50 L Pulse Oximetry 95 Oxygen Delivery Method Room Air BMI result Body Mass Index 25.2 Labs 08/02/24 09:31 08/02/24 17:28 Labs: Laboratory Results - last 48 hr 08/03/24 08:13 Estimat Average Glucose 114 Hemoglobin A1c % 5.6 Triglycerides 54 Cholesterol 130 LDL Cholesterol, Calc 76 HDL Cholesterol 44 Vitamin B12 233 TSH 0.53 Medications Medications Current Medications Acetaminophen (Acetaminophen 325 Mg Tablet) 650 mg PO Q6H PRN PRN Reason: Headache/Pain, Scale 1-10 Al Hydroxide/Mg Hydroxide (Magnesium Hydrox/Alum Hydrox 30 Ml Oral.Susp) 30 ml PO Q6H PRN PRN Reason: Heartburn/Nausea Buspirone HCl (Buspirone Hcl 5 Mg Tablet) 5 mg PO BID [facility] Last Admin: 08/05/24 08:11 Dose: 5 mg Escitalopram Oxalate (Escitalopram Oxalate 20 Mg Tablet) 20 mg PO DAILY [facility] Gabapentin (Gabapentin 100 Mg Capsule) 100 mg PO TID [facility] Last Admin: 08/05/24 08:11 Dose: 100 mg Magnesium Hydroxide (Milk Of Magnesia 30 Ml Oral.Susp) 30 ml PO DAILY PRN PRN Reason: Constipation Melatonin (Melatonin 3 Mg Tablet) 3 mg PO BEDTIME [facility] Last Admin: 08/04/24 20:25 Dose: 3 mg Multivitamins/Vitamin C (Multivitamin Tablet) 1 tab PO DAILY [facility] Last Admin: 08/05/24 08:10 Dose: 1 tab Non-Formulary Medication (Apremilast [Otezla]) 30 mg PO BID [facility] Non-Formulary Medication (Ciclopirox) 1 appl TOPICAL BEDTIME [facility] Risperidone (Risperidone 1 Mg Tablet) 1 mg PO DAILY [facility] Last Admin: 08/05/24 08:11 Dose: 1 mg Risperidone (Risperidone 0.5 Mg Tablet) 1.5 mg PO BEDTIME [facility] Last Admin: 08/04/24 20:25 Dose: 1.5 mg Trazodone HCl (Trazodone Hcl 50 Mg Tablet) 50 mg PO BEDTIME PRN PRN Reason: Insomnia Last Admin: 08/02/24 23:24 Dose: 50 mg Vitamin E (Vitamin E (Dl,Tocopheryl Acet) 180 Mg (400 Unit) Capsule) 180 mg PO DAILY [facility] Last Admin: 08/05/24 08:11 Dose: 180 mg Allergies Allergies Allergy/AdvReac Type Severity Reaction Status Date / Time Sulfa (Sulfonamide AdvReac Mild Unknown Verified 08/02/24 08:29 Antibiotics) Assessment & Plan Assessment & Plan (1) Schizophrenia: Status: Acute Code(s): F20.9 - Schizophrenia, unspecified Plan The patient is an elderly [place]vian male with a past history of schizophrenia, chronically mentally ill with [facility] 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 The patient had been medically cleared and on the intake interview he was very paranoid against the staff members of his [facility]. Plan 08/05- continue tx. no SI/HI. no s/s VH/AH. no delusional content. Reason for continued inpatient stay Substantial Risk for: inability to function Time Spent With Patient Time: Total time managing care of this patient today ____ minutes.
[2024-08-05 10:04] VITALS: BMI 23.7
[2024-08-05 20:00] VITALS: BP 115/54; PULSE 58; RESP 19; TEMP 36.9; O2SAT 96
[2024-08-05] MEDS: risperiDONE 0.5 MG TABLET 1.5 MG PO (20:36)
[2024-08-05] MEDS: Melatonin 3 MG TABLET PO (20:36)
[2024-08-06 08:00] VITALS: BP 130/60; PULSE 75; RESP 18; TEMP 36.3; O2SAT 98
[2024-08-06] MEDS: busPIRone HCl 5 MG TABLET PO ×2 (08:20→20:38)
[2024-08-06] MEDS: Multivitamin TABLET 1 TAB PO (08:20)
[2024-08-06] MEDS: Gabapentin 100 MG CAPSULE PO ×3 (08:20→20:38)
[2024-08-06] MEDS: Vitamin E (Dl,Tocopheryl Acet) 180 MG (400 UNIT) CAPSULE PO (08:20)
[2024-08-06] MEDS: Escitalopram Oxalate 20 MG TABLET PO (08:21)
[2024-08-06] MEDS: risperiDONE 1 MG TABLET PO (08:31)
--- NOTE | 2024-08-06 19:04 | HO.PSYCHPN ---
Subjective Subjective Date of Service: 08/06/24 Reason For Visit: Paranoia Interim History: Pt slept through the night. He reports he is doing well and denies suicidal or homicidal ideation. He reports he feels he is being treated as a child at the half-way. He reports he goes to day program and he enjoys going there a lot. He reports there is a family member, Vy, who eventually may be wiling to let him stay with her. We discussed that he needs to return to half-way and work with them to secure different housing arrangement, which he is in agreement with. When asked about hearing voices, pt reports he has heard voices of relatives but these are usually encouraging voices... don't give up He is visible on the unit, takes medications, attends groups. He is social with select peers. he reports hx of head injury comes from fall he had several years ago while intoxicated. Review of Systems Review of Systems Yes all other systems are reviewed and are negative Constitutional: Reports no additional constitutional complaints Cardiovascular: Reports no additional cardiovascular complaints Gastrointestinal: Reports no additional gastrointestinal complaints Musculoskeletal: Reports no additional musculoskeletal complaints Skin/Breast: Reports system reviewed and no additional complaints, except as docu Reports system reviewed and no additional complaints, except as documented Mental Status Exam Mental Status Exam Narrative: Appearance: wearing casual clothing, good hygiene, in NAD Behavior: cooperative Psychomotor: no agitation or retardation noted Speech: clear, normal rate/rhythm/volume, spontaneous TP: linear TC: wanting to return home soon Mood: good Affect: congruent SI: denies HI: denies VH/AH: denies Delusions: no delusional content noted or reported Insight/judgment: poor x 2. Memory/cog: alert, oriented x 3. Diagnostics Vital Signs (24Hr): Vital Signs - 24 hr 08/05/24 20:00 08/06/24 08:00 Temperature 98.4 F 97.4 F Pulse Rate 58 75 Respiratory Rate 19 18 Blood Pressure 115/54 L 130/60 Pulse Oximetry 96 98 Oxygen Delivery Method Room Air Room Air BMI result Body Mass Index 23.7 Labs 08/02/24 09:31 08/02/24 17:28 Medications Medications Current Medications Acetaminophen (Acetaminophen 325 Mg Tablet) 650 mg PO Q6H PRN PRN Reason: Headache/Pain, Scale 1-10 Al Hydroxide/Mg Hydroxide (Magnesium Hydrox/Alum Hydrox 30 Ml Oral.Susp) 30 ml PO Q6H PRN PRN Reason: Heartburn/Nausea Buspirone HCl (Buspirone Hcl 5 Mg Tablet) 5 mg PO BID [facility] Last Admin: 08/06/24 08:20 Dose: 5 mg Escitalopram Oxalate (Escitalopram Oxalate 20 Mg Tablet) 20 mg PO DAILY [facility] Last Admin: 08/06/24 08:21 Dose: 20 mg Gabapentin (Gabapentin 100 Mg Capsule) 100 mg PO TID [facility] Last Admin: 08/06/24 14:46 Dose: 100 mg Magnesium Hydroxide (Milk Of Magnesia 30 Ml Oral.Susp) 30 ml PO DAILY PRN PRN Reason: Constipation Melatonin (Melatonin 3 Mg Tablet) 3 mg PO BEDTIME [facility] Last Admin: 08/05/24 20:36 Dose: 3 mg Multivitamins/Vitamin C (Multivitamin Tablet) 1 tab PO DAILY [facility] Last Admin: 08/06/24 08:20 Dose: 1 tab Non-Formulary Medication (Apremilast [Otezla]) 30 mg PO BID [facility] Non-Formulary Medication (Ciclopirox) 1 appl TOPICAL BEDTIME [facility] Risperidone (Risperidone 1 Mg Tablet) 1 mg PO DAILY [facility] Last Admin: 08/06/24 08:31 Dose: 1 mg Risperidone (Risperidone 0.5 Mg Tablet) 1.5 mg PO BEDTIME [facility] Last Admin: 08/05/24 20:36 Dose: 1.5 mg Trazodone HCl (Trazodone Hcl 50 Mg Tablet) 50 mg PO BEDTIME PRN PRN Reason: Insomnia Last Admin: 08/02/24 23:24 Dose: 50 mg Vitamin E (Vitamin E (Dl,Tocopheryl Acet) 180 Mg (400 Unit) Capsule) 180 mg PO DAILY [facility] Last Admin: 08/06/24 08:20 Dose: 180 mg Allergies Allergies Allergy/AdvReac Type Severity Reaction Status Date / Time Sulfa (Sulfonamide AdvReac Mild Unknown Verified 08/02/24 08:29 Antibiotics) Assessment & Plan Assessment & Plan (1) Schizophrenia: Status: Acute Code(s): F20.9 - Schizophrenia, unspecified (2) TBI (traumatic brain injury): Status: Acute Code(s): S06.9XAA - Unspecified intracranial injury with loss of consciousness status unknown, initial encounter Assessment and Plan: pt reports head injury after fall Plan The patient is an elderly [place] male with a past history of schizophrenia, chronically mentally ill with [facility]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 The patient had been medically cleared and on the intake interview he was very paranoid against the staff members of his half-way. Plan 08/05- continue tx. no SI/HI. no s/s VH/AH. no delusional content. 08/06 continue tx. plan for dc next week. Reason for continued inpatient stay Substantial Risk for: inability to function Time Spent With Patient Time: Total time managing care of this patient today ____ minutes.
[2024-08-06 20:00] VITALS: BP 105/58; PULSE 60; RESP 18; TEMP 37.1; O2SAT 95
[2024-08-06] MEDS: risperiDONE 0.5 MG TABLET 1.5 MG PO (20:37)
[2024-08-06] MEDS: Melatonin 3 MG TABLET PO (20:38)
[2024-08-06] MEDS: traZODone HCL 50 MG TABLET PO (20:49)
[2024-08-07 07:52] VITALS: BP 133/61; PULSE 67; RESP 18; TEMP 36.9; O2SAT 96
[2024-08-07] MEDS: Gabapentin 100 MG CAPSULE PO ×3 (08:17→20:11)
[2024-08-07] MEDS: Vitamin E (Dl,Tocopheryl Acet) 180 MG (400 UNIT) CAPSULE PO (08:17)
[2024-08-07] MEDS: Multivitamin TABLET 1 TAB PO (08:17)
[2024-08-07] MEDS: busPIRone HCl 5 MG TABLET PO ×2 (08:17→20:12)
[2024-08-07] MEDS: risperiDONE 1 MG TABLET PO (08:17)
[2024-08-07] MEDS: Escitalopram Oxalate 20 MG TABLET PO (08:17)
--- NOTE | 2024-08-07 18:19 | HO.PSYCHPN ---
Subjective Subjective Date of Service: 08/07/24 Reason For Visit: Paranoia Subjective Notes: Conditional Voluntary Interim History: Pt slept through the night. He continues to denied SI/HI. He is looking forward to be discharged soon. No overt psychosis or delusional content noted or reported. Visible social with Danish speaking peers. Review of Systems Review of Systems Yes all other systems are reviewed and are negative Constitutional: Reports no additional constitutional complaints Cardiovascular: Reports no additional cardiovascular complaints Gastrointestinal: Reports no additional gastrointestinal complaints Musculoskeletal: Reports no additional musculoskeletal complaints Skin/Breast: Reports system reviewed and no additional complaints, except as docu Reports system reviewed and no additional complaints, except as documented Mental Status Exam Mental Status Exam Narrative: Appearance: wearing casual clothing, good hygiene, in NAD Behavior: cooperative Psychomotor: no agitation or retardation noted Speech: clear, normal rate/rhythm/volume, spontaneous TP: linear TC: wanting to return home soon Mood: good Affect: congruent SI: denies HI: denies VH/AH: denies Delusions: no delusional content noted or reported Insight/judgment: poor x 2. Memory/cog: alert, oriented x 3. Diagnostics Vital Signs (24Hr): Vital Signs - 24 hr 08/06/24 20:00 08/07/24 07:52 Temperature 98.8 F 98.4 F Pulse Rate 60 67 Respiratory Rate 18 18 Blood Pressure 105/58 L 133/61 Pulse Oximetry 95 96 Oxygen Delivery Method Room Air Room Air BMI result Body Mass Index 23.7 Labs 08/02/24 09:31 08/02/24 17:28 Medications Medications Current Medications Acetaminophen (Acetaminophen 325 Mg Tablet) 650 mg PO Q6H PRN PRN Reason: Headache/Pain, Scale 1-10 Al Hydroxide/Mg Hydroxide (Magnesium Hydrox/Alum Hydrox 30 Ml Oral.Susp) 30 ml PO Q6H PRN PRN Reason: Heartburn/Nausea Buspirone HCl (Buspirone Hcl 5 Mg Tablet) 5 mg PO BID [facility] Last Admin: 08/07/24 08:17 Dose: 5 mg Escitalopram Oxalate (Escitalopram Oxalate 20 Mg Tablet) 20 mg PO DAILY [facility] Last Admin: 08/07/24 08:17 Dose: 20 mg Gabapentin (Gabapentin 100 Mg Capsule) 100 mg PO TID [facility] Last Admin: 08/07/24 14:46 Dose: 100 mg Magnesium Hydroxide (Milk Of Magnesia 30 Ml Oral.Susp) 30 ml PO DAILY PRN PRN Reason: Constipation Melatonin (Melatonin 3 Mg Tablet) 3 mg PO BEDTIME [facility] Last Admin: 08/06/24 20:38 Dose: 3 mg Multivitamins/Vitamin C (Multivitamin Tablet) 1 tab PO DAILY [facility] Last Admin: 08/07/24 08:17 Dose: 1 tab Non-Formulary Medication (Apremilast [Otezla]) 30 mg PO BID [facility] Non-Formulary Medication (Ciclopirox) 1 appl TOPICAL BEDTIME [facility] Risperidone (Risperidone 1 Mg Tablet) 1 mg PO DAILY [facility] Last Admin: 08/07/24 08:17 Dose: 1 mg Risperidone (Risperidone 0.5 Mg Tablet) 1.5 mg PO BEDTIME [facility] Last Admin: 08/06/24 20:37 Dose: 1.5 mg Trazodone HCl (Trazodone Hcl 50 Mg Tablet) 50 mg PO BEDTIME PRN PRN Reason: Insomnia Last Admin: 08/06/24 20:49 Dose: 50 mg Vitamin E (Vitamin E (Dl,Tocopheryl Acet) 180 Mg (400 Unit) Capsule) 180 mg PO DAILY [facility] Last Admin: 08/07/24 08:17 Dose: 180 mg Allergies Allergies Allergy/AdvReac Type Severity Reaction Status Date / Time Sulfa (Sulfonamide AdvReac Mild Unknown Verified 08/02/24 08:29 Antibiotics) Assessment & Plan Assessment & Plan (1) Schizophrenia: Status: Acute Code(s): F20.9 - Schizophrenia, unspecified Plan The patient is an elderly [place] male with a past history of schizophrenia, chronically mentally ill with [facility]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 The patient had been medically cleared and on the intake interview he was very paranoid against the staff members of his retirement. Plan 08/05- continue tx. no SI/HI. no s/s VH/AH. no delusional content. 08/06 continue tx 08/07 continue tx. Reason for continued inpatient stay Substantial Risk for: inability to function Time Spent With Patient Time: Total time managing care of this patient today ____ minutes.
[2024-08-07 20:00] VITALS: BP 107/57; PULSE 81; TEMP 36.1; O2SAT 98
[2024-08-07] MEDS: risperiDONE 0.5 MG TABLET 1.5 MG PO (20:10)
[2024-08-07] MEDS: Melatonin 3 MG TABLET PO (20:11)
[2024-08-07] MEDS: traZODone HCL 50 MG TABLET PO (20:12)
[2024-08-08 09:07] VITALS: BP 112/55; PULSE 83; RESP 16; TEMP 36.8; O2SAT 98
[2024-08-08] MEDS: Gabapentin 100 MG CAPSULE PO ×3 (09:08→20:19)
[2024-08-08] MEDS: Multivitamin TABLET 1 TAB PO (09:08)
[2024-08-08] MEDS: risperiDONE 1 MG TABLET PO (09:08)
[2024-08-08] MEDS: Vitamin E (Dl,Tocopheryl Acet) 180 MG (400 UNIT) CAPSULE PO (09:09)
[2024-08-08] MEDS: Escitalopram Oxalate 20 MG TABLET PO (09:09)
[2024-08-08] MEDS: busPIRone HCl 5 MG TABLET PO ×2 (09:09→20:19)
--- NOTE | 2024-08-08 12:17 | P.PNPSI_ITS ---
Subjective Subjective Date of Service: 08/08/24 Reason For Visit: Paranoia Subjective Notes: Conditional Voluntary Interim History: Pt slept through the night. He continues to denied SI/HI. He is looking forward to be discharged soon. No overt psychosis or delusional content noted or reported. She reports feeling well, denies any depression. Visible social with Azeri speaking peers. Review of Systems Review of Systems Yes all other systems are reviewed and are negative Constitutional: Reports no additional constitutional complaints Cardiovascular: Reports no additional cardiovascular complaints Gastrointestinal: Reports no additional gastrointestinal complaints Musculoskeletal: Reports no additional musculoskeletal complaints Skin/Breast: Reports system reviewed and no additional complaints, except as docu Reports system reviewed and no additional complaints, except as documented Mental Status Exam Mental Status Exam Narrative: Appearance: wearing casual clothing, good hygiene, in NAD Behavior: cooperative Psychomotor: no agitation or retardation noted Speech: clear, normal rate/rhythm/volume, spontaneous TP: linear TC: wanting to return home soon Mood: good Affect: congruent SI: denies HI: denies VH/AH: denies Delusions: no delusional content noted or reported Insight/judgment: poor x 2. Memory/cog: alert, oriented x 3. Diagnostics Vital Signs (24Hr): Vital Signs - 24 hr 08/07/24 20:00 08/08/24 09:07 Temperature 97 F 98.3 F Pulse Rate 81 83 Respiratory Rate 16 Blood Pressure 107/57 L 112/55 L Pulse Oximetry 98 98 Oxygen Delivery Method Room Air Room Air BMI result Body Mass Index 23.7 Labs 08/02/24 09:31 08/02/24 17:28 Medications Medications Current Medications Acetaminophen (Acetaminophen 325 Mg Tablet) 650 mg PO Q6H PRN PRN Reason: Headache/Pain, Scale 1-10 Al Hydroxide/Mg Hydroxide (Magnesium Hydrox/Alum Hydrox 30 Ml Oral.Susp) 30 ml PO Q6H PRN PRN Reason: Heartburn/Nausea Buspirone HCl (Buspirone Hcl 5 Mg Tablet) 5 mg PO BID [facility] Last Admin: 08/08/24 09:09 Dose: 5 mg Escitalopram Oxalate (Escitalopram Oxalate 20 Mg Tablet) 20 mg PO DAILY [facility] Last Admin: 08/08/24 09:09 Dose: 20 mg Gabapentin (Gabapentin 100 Mg Capsule) 100 mg PO TID [facility] Last Admin: 08/08/24 09:08 Dose: 100 mg Magnesium Hydroxide (Milk Of Magnesia 30 Ml Oral.Susp) 30 ml PO DAILY PRN PRN Reason: Constipation Melatonin (Melatonin 3 Mg Tablet) 3 mg PO BEDTIME [facility] Last Admin: 08/07/24 20:11 Dose: 3 mg Multivitamins/Vitamin C (Multivitamin Tablet) 1 tab PO DAILY [facility] Last Admin: 08/08/24 09:08 Dose: 1 tab Non-Formulary Medication (Apremilast [Otezla]) 30 mg PO BID [facility] Non-Formulary Medication (Ciclopirox) 1 appl TOPICAL BEDTIME [facility] Risperidone (Risperidone 1 Mg Tablet) 1 mg PO DAILY [facility] Last Admin: 08/08/24 09:08 Dose: 1 mg Risperidone (Risperidone 0.5 Mg Tablet) 1.5 mg PO BEDTIME [facility] Last Admin: 08/07/24 20:10 Dose: 1.5 mg Trazodone HCl (Trazodone Hcl 50 Mg Tablet) 50 mg PO BEDTIME PRN PRN Reason: Insomnia Last Admin: 08/07/24 20:12 Dose: 50 mg Vitamin E (Vitamin E (Dl,Tocopheryl Acet) 180 Mg (400 Unit) Capsule) 180 mg PO DAILY [facility] Last Admin: 08/08/24 09:09 Dose: 180 mg Allergies Allergies Allergy/AdvReac Type Severity Reaction Status Date / Time Sulfa (Sulfonamide AdvReac Mild Unknown Verified 08/02/24 08:29 Antibiotics) Assessment & Plan Assessment & Plan (1) Schizophrenia: Status: Acute Code(s): F20.9 - Schizophrenia, unspecified Plan The patient is an elderly [place]ian male with a past history of schizophrenia, chronically mentally ill with [facility] 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 The patient had been medically cleared and on the intake interview he was very paranoid against the staff members of his intermediate. Plan 08/05- continue tx. no SI/HI. no s/s VH/AH. no delusional content. 08/06 continue tx 08/07 continue tx. 08/08 continue tx. Reason for continued inpatient stay Substantial Risk for: inability to function Time Spent With Patient Time: Total time managing care of this patient today ____ minutes.
[2024-08-08 20:00] VITALS: BP 92/65; PULSE 56; RESP 18; TEMP 36.2; O2SAT 95
[2024-08-08] MEDS: Melatonin 3 MG TABLET PO (20:19)
[2024-08-08] MEDS: risperiDONE 0.5 MG TABLET 1.5 MG PO (20:19)
[2024-08-08] MEDS: traZODone HCL 50 MG TABLET PO (20:20)
[2024-08-09 08:40] VITALS: BP 120/56; PULSE 66; RESP 18; TEMP 36.9; O2SAT 98
[2024-08-09] MEDS: Vitamin E (Dl,Tocopheryl Acet) 180 MG (400 UNIT) CAPSULE PO (09:00)
[2024-08-09] MEDS: Gabapentin 100 MG CAPSULE PO ×3 (09:00→20:20)
[2024-08-09] MEDS: busPIRone HCl 5 MG TABLET PO ×2 (09:00→20:20)
[2024-08-09] MEDS: risperiDONE 1 MG TABLET PO (09:01)
[2024-08-09] MEDS: Multivitamin TABLET 1 TAB PO (09:01)
[2024-08-09] MEDS: Escitalopram Oxalate 20 MG TABLET PO (09:01)
--- NOTE | 2024-08-09 10:14 | P.PNPSI_ITS ---
Subjective Subjective Date of Service: 08/09/24 Reason For Visit: Paranoia Subjective Notes: Conditional Voluntary Interim History: Pt slept through the night. He continues to denied SI/HI. He is looking forward to be discharged soon. No overt psychosis or delusional content noted or reported. She reports feeling well, denies any depression. Visible social with Lao speaking peers. Review of Systems Review of Systems Yes all other systems are reviewed and are negative Constitutional: Reports no additional constitutional complaints Cardiovascular: Reports no additional cardiovascular complaints Gastrointestinal: Reports no additional gastrointestinal complaints Musculoskeletal: Reports no additional musculoskeletal complaints Skin/Breast: Reports system reviewed and no additional complaints, except as docu Reports system reviewed and no additional complaints, except as documented Mental Status Exam Mental Status Exam Narrative: Appearance: wearing casual clothing, good hygiene, in NAD Behavior: cooperative Psychomotor: no agitation or retardation noted Speech: clear, normal rate/rhythm/volume, spontaneous TP: linear TC: wanting to return home soon Mood: good Affect: congruent SI: denies HI: denies VH/AH: denies Delusions: no delusional content noted or reported Insight/judgment: poor x 2. Memory/cog: alert, oriented x 3. Diagnostics Vital Signs (24Hr): Vital Signs - 24 hr 08/08/24 20:00 08/09/24 08:40 Temperature 97.1 F 98.4 F Pulse Rate 56 66 Respiratory Rate 18 18 Blood Pressure 92/65 120/56 L Pulse Oximetry 95 98 Oxygen Delivery Method Room Air Room Air BMI result Body Mass Index 23.7 Labs 08/02/24 09:31 08/02/24 17:28 Medications Medications Current Medications Acetaminophen (Acetaminophen 325 Mg Tablet) 650 mg PO Q6H PRN PRN Reason: Headache/Pain, Scale 1-10 Al Hydroxide/Mg Hydroxide (Magnesium Hydrox/Alum Hydrox 30 Ml Oral.Susp) 30 ml PO Q6H PRN PRN Reason: Heartburn/Nausea Buspirone HCl (Buspirone Hcl 5 Mg Tablet) 5 mg PO BID [facility] Last Admin: 08/09/24 09:00 Dose: 5 mg Escitalopram Oxalate (Escitalopram Oxalate 20 Mg Tablet) 20 mg PO DAILY [facility] Last Admin: 08/09/24 09:01 Dose: 20 mg Gabapentin (Gabapentin 100 Mg Capsule) 100 mg PO TID [facility] Last Admin: 08/09/24 09:00 Dose: 100 mg Magnesium Hydroxide (Milk Of Magnesia 30 Ml Oral.Susp) 30 ml PO DAILY PRN PRN Reason: Constipation Melatonin (Melatonin 3 Mg Tablet) 3 mg PO BEDTIME [facility] Last Admin: 08/08/24 20:19 Dose: 3 mg Multivitamins/Vitamin C (Multivitamin Tablet) 1 tab PO DAILY [facility] Last Admin: 08/09/24 09:01 Dose: 1 tab Non-Formulary Medication (Apremilast [Otezla]) 30 mg PO BID [facility] Non-Formulary Medication (Ciclopirox) 1 appl TOPICAL BEDTIME [facility] Risperidone (Risperidone 1 Mg Tablet) 1 mg PO DAILY [facility] Last Admin: 08/09/24 09:01 Dose: 1 mg Risperidone (Risperidone 0.5 Mg Tablet) 1.5 mg PO BEDTIME [facility] Last Admin: 08/08/24 20:19 Dose: 1.5 mg Trazodone HCl (Trazodone Hcl 50 Mg Tablet) 50 mg PO BEDTIME PRN PRN Reason: Insomnia Last Admin: 08/08/24 20:20 Dose: 50 mg Vitamin E (Vitamin E (Dl,Tocopheryl Acet) 180 Mg (400 Unit) Capsule) 180 mg PO DAILY [facility] Last Admin: 08/09/24 09:00 Dose: 180 mg Allergies Allergies Allergy/AdvReac Type Severity Reaction Status Date / Time Sulfa (Sulfonamide AdvReac Mild Unknown Verified 08/02/24 08:29 Antibiotics) Assessment & Plan Assessment & Plan (1) Schizophrenia: Status: Acute Code(s): F20.9 - Schizophrenia, unspecified Plan The patient is an elderly [place] male with a past history of schizophrenia, chronically mentally ill with [facility]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 The patient had been medically cleared and on the intake interview he was very paranoid against the staff members of his senior care. Plan 08/05- continue tx. no SI/HI. no s/s VH/AH. no delusional content. 08/06 continue tx 08/07 continue tx. 08/08 continue tx. 08/09 continue tx. Reason for continued inpatient stay Substantial Risk for: inability to function Time Spent With Patient Time: Total time managing care of this patient today ____ minutes.
[2024-08-09 20:00] VITALS: BP 113/56; PULSE 62; RESP 18; TEMP 36.2; O2SAT 95
[2024-08-09] MEDS: traZODone HCL 50 MG TABLET PO (20:20)
[2024-08-09] MEDS: Melatonin 3 MG TABLET PO (20:20)
[2024-08-09] MEDS: risperiDONE 0.5 MG TABLET 1.5 MG PO (20:20)
[2024-08-10 08:00] VITALS: BP 110/59; PULSE 70; RESP 16; TEMP 36.4; O2SAT 96
[2024-08-10] MEDS: Vitamin E (Dl,Tocopheryl Acet) 180 MG (400 UNIT) CAPSULE PO (08:20)
[2024-08-10] MEDS: Multivitamin TABLET 1 TAB PO (08:20)
[2024-08-10] MEDS: Gabapentin 100 MG CAPSULE PO ×3 (08:20→20:40)
[2024-08-10] MEDS: risperiDONE 1 MG TABLET PO (08:21)
[2024-08-10] MEDS: busPIRone HCl 5 MG TABLET PO ×2 (08:21→20:40)
[2024-08-10] MEDS: Escitalopram Oxalate 20 MG TABLET PO (08:21)
--- NOTE | 2024-08-10 12:34 | P.PNPSI_ITS ---
Subjective Subjective Date of Service: 08/10/24 Reason For Visit: Paranoia Interim History: Pt slept through the night. He continues to denied SI/HI. He is looking forward to be discharged soon. No overt psychosis or delusional content noted or reported. She reports feeling well, denies any depression. Visible social with Tamazight speaking peers. Had meeting with [employer] providers- discussed tx and current presentation of patient. No acute symptoms no safety concerns. Pt to discharge yesterday. Review of Systems Review of Systems Yes all other systems are reviewed and are negative Constitutional: Reports no additional constitutional complaints Cardiovascular: Reports no additional cardiovascular complaints Gastrointestinal: Reports no additional gastrointestinal complaints Musculoskeletal: Reports no additional musculoskeletal complaints Skin/Breast: Reports system reviewed and no additional complaints, except as docu Reports system reviewed and no additional complaints, except as documented Mental Status Exam Mental Status Exam Narrative: Appearance: wearing casual clothing, good hygiene, in NAD Behavior: cooperative Psychomotor: no agitation or retardation noted Speech: clear, normal rate/rhythm/volume, spontaneous TP: linear TC: wanting to return home soon Mood: good Affect: congruent SI: denies HI: denies VH/AH: denies Delusions: no delusional content noted or reported Insight/judgment: poor x 2. Memory/cog: alert, oriented x 3. Diagnostics Vital Signs (24Hr): Vital Signs - 24 hr 08/09/24 20:00 08/10/24 08:00 Temperature 97.2 F 97.6 F Pulse Rate 62 70 Respiratory Rate 18 16 Blood Pressure 113/56 L 110/59 L Pulse Oximetry 95 96 Oxygen Delivery Method Room Air Room Air BMI result Body Mass Index 23.7 Labs 08/02/24 09:31 08/02/24 17:28 Medications Medications Current Medications Acetaminophen (Acetaminophen 325 Mg Tablet) 650 mg PO Q6H PRN PRN Reason: Headache/Pain, Scale 1-10 Al Hydroxide/Mg Hydroxide (Magnesium Hydrox/Alum Hydrox 30 Ml Oral.Susp) 30 ml PO Q6H PRN PRN Reason: Heartburn/Nausea Buspirone HCl (Buspirone Hcl 5 Mg Tablet) 5 mg PO BID [facility] Last Admin: 08/10/24 08:21 Dose: 5 mg Escitalopram Oxalate (Escitalopram Oxalate 20 Mg Tablet) 20 mg PO DAILY [facility] Last Admin: 08/10/24 08:21 Dose: 20 mg Gabapentin (Gabapentin 100 Mg Capsule) 100 mg PO TID [facility] Last Admin: 08/10/24 08:20 Dose: 100 mg Magnesium Hydroxide (Milk Of Magnesia 30 Ml Oral.Susp) 30 ml PO DAILY PRN PRN Reason: Constipation Melatonin (Melatonin 3 Mg Tablet) 3 mg PO BEDTIME [facility] Last Admin: 08/09/24 20:20 Dose: 3 mg Multivitamins/Vitamin C (Multivitamin Tablet) 1 tab PO DAILY [facility] Last Admin: 08/10/24 08:20 Dose: 1 tab Non-Formulary Medication (Apremilast [Otezla]) 30 mg PO BID [facility] Non-Formulary Medication (Ciclopirox) 1 appl TOPICAL BEDTIME [facility] Risperidone (Risperidone 1 Mg Tablet) 1 mg PO DAILY [facility] Last Admin: 08/10/24 08:21 Dose: 1 mg Risperidone (Risperidone 0.5 Mg Tablet) 1.5 mg PO BEDTIME [facility] Last Admin: 08/09/24 20:20 Dose: 1.5 mg Trazodone HCl (Trazodone Hcl 50 Mg Tablet) 50 mg PO BEDTIME PRN PRN Reason: Insomnia Last Admin: 08/09/24 20:20 Dose: 50 mg Vitamin E (Vitamin E (Dl,Tocopheryl Acet) 180 Mg (400 Unit) Capsule) 180 mg PO DAILY [facility] Last Admin: 08/10/24 08:20 Dose: 180 mg Allergies Allergies Allergy/AdvReac Type Severity Reaction Status Date / Time Sulfa (Sulfonamide AdvReac Mild Unknown Verified 08/02/24 08:29 Antibiotics) Assessment & Plan Assessment & Plan (1) Schizophrenia: Status: Acute Code(s): F20.9 - Schizophrenia, unspecified Plan The patient is an elderly [place] male with a past history of schizophrenia, chronically mentally ill 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 The patient had been medically cleared and on the intake interview he was very paranoid against the staff members of his penitentiary. Plan 08/05- continue tx. no SI/HI. no s/s VH/AH. no delusional content. 08/06 continue tx 08/07 continue tx. 08/08 continue tx. 08/09 continue tx. 08/10 continue tx. Reason for continued inpatient stay Substantial Risk for: inability to function Time Spent With Patient Time: Total time managing care of this patient today ____ minutes.
[2024-08-10 19:58] VITALS: BP 112/56; PULSE 62; RESP 17; TEMP 37.1; O2SAT 95
[2024-08-10] MEDS: traZODone HCL 50 MG TABLET PO (20:40)
[2024-08-10] MEDS: risperiDONE 0.5 MG TABLET 1.5 MG PO (20:40)
[2024-08-10] MEDS: Melatonin 3 MG TABLET PO (20:40)
[2024-08-11 08:00] VITALS: BP 116/67; PULSE 71; TEMP 36.4; O2SAT 95
[2024-08-11] MEDS: Vitamin E (Dl,Tocopheryl Acet) 180 MG (400 UNIT) CAPSULE PO (08:42)
[2024-08-11] MEDS: Gabapentin 100 MG CAPSULE PO (08:42)
[2024-08-11] MEDS: risperiDONE 1 MG TABLET PO (08:42)
[2024-08-11] MEDS: Escitalopram Oxalate 20 MG TABLET PO (08:43)
[2024-08-11] MEDS: busPIRone HCl 5 MG TABLET PO (08:43)
[2024-08-11] MEDS: Multivitamin TABLET 1 TAB PO (08:43)
--- NOTE | 2024-08-11 09:38 | P.DS_ITS ---
DS: Providers Provider Date of Service: 08/11/24 Date of admission: 08/02/24 13:42 Date of discharge: 08/11/24 Primary care physician: Unknown Physician Discharging clinician: Kelsey De La Paz DS: Diagnosis Discharge Diagnosis (1) Schizophrenia: Status: Acute DS: Medications Discharge Medications Home Medications: Home Medications ?Medication ?Instructions ?Recorded ?Confirmed apremilast 30 mg tablet (Otezla) 30 mg PO BID 03/05/23 08/02/24 multivitamin with minerals-ferrous 1 tab PO DAILY 07/14/24 08/02/24 sulfate 4.5 mg iron tablet (One Daily Multivitamins with Minerals) naltrexone 50 mg tablet 50 mg PO DAILY 07/14/24 08/02/24 vitamin E (dl, acetate) 180 mg 180 mg PO DAILY 07/14/24 08/02/24 (400 unit) capsule buspirone 10 mg tablet 10 mg PO BID 07/16/24 08/02/24 ciclopirox 8 % topical solution 1 appl topical BEDTIME 07/16/24 08/02/24 multivitamin 1 tab PO DAILY 07/16/24 08/02/24 trazodone 100 mg tablet 100 mg PO BEDTIME 07/16/24 08/02/24 Previous Rx's ?Medication ?Instructions ?Recorded melatonin 3 mg tablet 3 mg PO BEDTIME #30 tabs 05/17/21 escitalopram oxalate 20 mg tablet 20 mg PO DAILY #30 tabs 08/10/24 gabapentin 100 mg capsule 100 mg PO TID #90 caps 08/10/24 risperidone 0.5 mg tablet 1.5 mg (3 x 0.5 mg) PO BEDTIME #30 08/10/24 tabs risperidone 1 mg tablet 1 mg PO DAILY #30 tabs 08/10/24 Mental Status Exam Mental Status Exam Narrative: Appearance: wearing casual clothing, good hygiene, in NAD Behavior: cooperative Psychomotor: no agitation or retardation noted Speech: clear, normal rate/rhythm/volume, spontaneous TP: linear TC: wanting to return home soon Mood: good Affect: congruent SI: denies HI: denies VH/AH: denies Delusions: no delusional content noted or reported Insight/judgment: poor x 2. Memory/cog: alert, oriented x 3. DS: Summary Hospital Course Hospital Course: The patient is a 73-year-old [place]kin[place] male, from his , father of adult children, with a past history of schizophrenia, resident of a fpc with several ancillary services provided by the [facility]. The patient was brought to the emergency room from the staff of his fpc since the patient had been decompensating with exacerbation of auditory hallucinations paranoia and irritability. He was assessed by crisis and transferring to this facility for psychiatric stabilization. On the intake interview, the patient was pleasant cooperative he reported that he had been taking his medication and he suffer from schizophrenia for more than 40 years. He stated that he does not like his fpc he feels that the staff of the fpc are against him and he feels unsafe in that facility. He was able to contract for safety in our facility. He denies suicidal or homi cidal thoughts, he is willing to continue treatment in our facility. The patient is a very poor historian, he was interviewed in Montenegrin but he is able to understand that he is in a psychiatric unit. He stated that he had been admitted several times in his lifetime and probably his last admission was 2 years ago. We will gather collateral information Past Psychiatric History: The patient is a poor historian but apparently his 1st psychotic break was in his early 30s, he has several admissions into the hospital such as [facility], [facility], [facility] and others. His last admission as per his report was probably 2 years ago. He follows outpatient services at [facility], he is a resident of a fpc and he has [facility] ancillary services. He is unable to provide his list of medications but he stated that he had been fully compliant with treatment HOSPITAL COURSE On the unit, pt was admitted on a CV and placed on 15 minutes checks for safety. Pt was initially under the care of Dr. Selby who increase risperidone to 1mg po daily and risperidone 1.5mg po qhs. During the hospital stay, pt has denied any thoughts or intent to harm himself or anyone at the fpc. Pt reports he does not like the fpc as she feels he is treated as a child. Pt reports he enjoys going to day program daily. In terms of knife in his room prior to coming to the hospital, he reports he had a knife to cut a cardboard box that he wanted to put in the trash. He denies that he wanted to hurt anyone. He has been visible on the unit. He is pleasant and cooperative. He does present as internally preoccupied. No overt delusions. He does understand that he has to return to the fpc and he follow their rule including the fact that police or crisis will be called for safety. He adamantly denies any plan or intent to harm himself or others. He has not shown any signs of aggression towards self or others. He is sleeping and eating. He is also taking medications as prescribed. There has not been any incidences of disruptive behaviors nor need for restraints. Status at Discharge Cognitive/behavioral status at discharge: Pt with bright affect, non labile. No overt signs of psychosis or delusions. Sleeping and eating well. NO SI/HI. Functional status at discharge: independent ambulation Overall status at discharge: patient is back to baseline Time Spent with Patient Time attestation: Total time managing care of this patient today __40__ minutes. Time spent: Greater than 30 minutes Discharge Plan Discharge Anticipated Discharge Date/Time: 08/11/24 10:00 Patient Disposition: Home, Self-Care Discharge Diagnosis: TBI Hx of Schizophrenia [facility] - 08/11/24 11:00 am (You will be sent home to your [facility] at 11:00 by our javier service. Korina will be meeting up with you at the fpc at 12 to discuss what you want to do next.) Discharge Medications: New escitalopram oxalate 20 mg Tablet 20 mg PO DAILY Qty: 30 0RF gabapentin 100 mg Capsule 100 mg PO TID Qty: 90 0RF risperidone 1 mg Tablet 1 mg PO DAILY Qty: 30 0RF risperidone 0.5 mg Tablet 1.5 mg PO BEDTIME Qty: 30 0RF Continued melatonin 3 mg tablet 3 mg PO BEDTIME Qty: 30 3RF Otezla 30 mg tablet 30 mg PO BID naltrexone 50 mg tablet 50 mg PO DAILY vitamin E (dl, acetate) 180 mg (400 unit) capsule 180 mg PO DAILY One Daily Multi-Vit w-Mineral 4.5 mg iron tablet 1 tab PO DAILY trazodone 100 mg tablet 100 mg PO BEDTIME multivitamin Tablet 1 tab PO DAILY buspirone 10 mg tablet 10 mg PO BID ciclopirox 8 % solution 1 appl topical BEDTIME Discontinued magnesium hydroxide [Milk of Magnesia] 400 mg/5 mL suspension 30 ml PO .q 72 hours PRN (Reason: for constipation or bowel assist) 30 Days Qty: 355 5RF Rx Instructions: If no results after 24 hours from dose, contact PCP risperidone [Risperdal] 0.5 mg Tablet 1.5 mg PO BEDTIME escitalopram oxalate [Lexapro] 20 mg tablet 20 mg PO .twice daily gabapentin [Neurontin] 400 mg capsule 400 mg PO TID Discharge Orders: Discharge Order (Routine); Ordered 08/11/24 Ordered By: Kelsey De La Paz Diet: Regular diet Activity on Discharge: As tolerated Stand Alone Forms: Patient Portal Discharge page, Community Support Print Language: Montenegrin Care Plan Goals: maintain mood no SI/HI No overt psychosis or delusions Health Concerns: Follow up with PCP Plan of Treatment: 1. Take medications as prescribed 2. Go to nearest ED or call 911 in event of emergency Assessment: Pt with bright, non labile affect. No SI/HI. No signs of psychosis or delusions. Sleeping and eating well. No aggression towards self or others.
== END 2024-08-11 11:00 | disposition home or self-care (01) | DRG 885 ==
LOC: HO.ED 12:11 → HO.PGERI 13:44
PROVIDERS: Admitting Provider Social Worker; Emergency Provider Emergency Medicine; Visit Provider Social Worker
DX: F20.9 Schizophrenia, unspecified (principal); R45.851 Suicidal ideations; F17.210 Nicotine dependence, cigarettes, uncomplicated; Z71.6 Tobacco abuse counseling; Z87.820 Personal history of traumatic brain injury; Z79.899 Other long term (current) drug therapy
CPT/HCPCS: 36415; 80053; 80061; 80307; 81003; 82607; 83036; 84443; 85025; 93005; 99285; S9485

== ENCOUNTER → 2024-08-02 09:13 | Outpatient (BNV) | payer MEDICARE, MEDICAID, SELFPAY | PROVIDERS: Admitting Provider Social Worker; Emergency Provider Emergency Medicine; Visit Provider Internal Medicine Cardiovascular Disease | DX: R07.9 Chest pain, unspecified (principal) | CPT/HCPCS: 93010 ==

== ENCOUNTER → 2024-08-02 13:42 | Outpatient (BNV) | payer MEDICARE, MEDICAID, SELFPAY | PROVIDERS: Admitting Provider Social Worker; Emergency Provider Emergency Medicine; Visit Provider Psychiatry & Neurology Psychiatry | DX: F20.0 Paranoid schizophrenia (principal) | CPT/HCPCS: 90792; 99231; 99232 ==

== ENCOUNTER 2024-08-19 12:43 | Outpatient (REF) | payer MEDICARE, MEDICAID, SELFPAY ==
--- NOTE | 2024-08-19 14:54 | MHC.AU.HA1 ---
Hearing Aid Evaluation Date of Visit: 08/19/24 Application Support Analyst Used: Kazakh- In Person Historical Information: Description of Hearing: Moderately severe to severe sensorineural hearing loss bilateral. Current personal amplification information, if applicable: None Summary: Jamshid reports difficulty hearing. Lily, staff member from [facility], notes that she needs to speak loudly for Jamshid to understand. Amplification recommended to facilitate improved communication. Jamshid reports that he would like to hear better. Recommended BTE with custom mold. Impressions taken without incidence Au. Hearing Aid Prescription: Based on the individual?s shared listening needs, communication environments, dexterity, desire for connectivity, and personal preferences, the following prescription for amplification has been made: Right ear: Make, Model, Color: Marlen L 70 SP BTE silver Battery Size: 13 Type of Earmold/Dome/CShell/SlimTip: acrylic half shell Left ear: Left ear prescription to be same as Right Hearing Aid above: Make, Model, Color: Naisa L 70 SP BTE silver Battery Size: 13 Type of Earmold/Dome/CShell/SlimTip: Acrylic half shell Plan of Care: Patient wishes to purchase hearing aids as prescribed Action Taken/Action Needed: Earmold Impressions Taken Medical Clearance to be requested from PCP/ENT Hearing Instrument Fitting to be scheduled when materials arrive Primary Diagnosis: H90.3 Bilateral Sensorineural Hearing Loss Signature: Provider: Nola Walker, [facility]
== END 2024-08-19 12:44 | disposition home or self-care (01) ==
LOC: HO.SH 12:43
PROVIDERS: Visit Provider Nurse Practitioner Family
DX: Z01.118 Encounter for examination of ears and hearing with other abnormal findings (principal); H90.3 Sensorineural hearing loss, bilateral; Z46.1 Encounter for fitting and adjustment of hearing aid
CPT/HCPCS: 92557; 92567; 92591; V5275

== ENCOUNTER 2024-09-22 14:25 | Outpatient (REF) | payer MEDICARE, MEDICAID, SELFPAY ==
--- NOTE | 2024-09-22 15:49 | MHC.AU.HA2 ---
Hearing Instrument Fitting- Adult- Binaural Date of Visit: 09/22/24 Brand Leader Used: Yakut In Person Hearing Instruments Dispensed: Right Ear: Make, Model, Color, Serial Number: Marlen L 70 SP BTE silver [id number] Procurement Manager Repair Warranty: 09/26/2027 Procurement Manager Loss and Damage Warranty: 09/26/2027 [facility] Service Plan: 09/22/25 Battery Size: 13 Earmold/Dome/CShell/SlimTip: acrylic half shell [id number] Warranty 12/01/2024 Left Ear: Make, Model, Color, Serial Number: Naisa L 70 SP BTE silver [id number] Procurement Manager Repair Warranty: 09/26/2027 Procurement Manager Loss and Damage Warranty: 09/26/2027 [facility] Service Plan: 09/22/25 Battery Size: 13 Rigging Loft Mechanic/Slim Tube: Acrylic half shell [id number] Warranty 12/01/2024 Summary of Fitting: Accompanied by executive chairman. Fit with and oriented to Phonak Marlen L 70 SP HAs. Verified to [facility] Adult 5 targets. Ran feedback supplier manager. VC disabled. Reviewed maintenance, precautions, battery procedures. Practiced insertion and removal. Good subjective comfort and benefit reported. Counseled on adjustment to amplification. Recommendations: Recommendations: A hearing instrument follow-up was scheduled. Diagnosis Code(s): Primary Diagnosis: H90.3 Bilateral Sensorineural Hearing Loss Signature: Provider: Nola Walker, CCC-A
== END 2024-09-22 14:26 | disposition home or self-care (01) ==
LOC: HO.HAP 14:25
PROVIDERS: Visit Provider Family Medicine
DX: Z46.1 Encounter for fitting and adjustment of hearing aid (principal); H90.3 Sensorineural hearing loss, bilateral
CPT/HCPCS: V5011; V5020; V5160; V5261; V5264; V5266

== ENCOUNTER 2025-03-29 13:00 | Outpatient (AMB) | payer MEDICARE, MEDICAID, SELFPAY ==
--- NOTE | 2025-03-29 13:02 | MHC.PC.OV ---
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 Name: pt refused w/worker Information Interpreted: non-clinical & clinical Allergies Sulfa (Sulfonamide Antibiotics) Adverse Reaction (Mild, Verified 03/29/25 13:05) Unknown Tobacco use date assessed: 03/29/25 Fall risk assessment: No Falls in past year Last assessed Fall Risk: 03/29/25 Dental Screening Dental Screen Date: 03/29/25 Did you have a dental visit in the last 12 months?: No Did you have a dental problem in the last 6 months where you did not have access to dental care?: No Was dental information given to patient?: Patient has dentist HPI HPI Comments History of Present Illness Details 74-year-old male, accompanied by [facility] staff, presents with complaints of lumps to the bottom of his feet. No acute symptoms at this time. PENDING SALE TO [facility] Medical History Smoker Nervous disorder Depression Anxiety Surgical History Hx of colonoscopy No pertinent past surgical history Social History Household Members: Other Household Members Other:: [facility] residents Housing: Other Housing Other:: [facility] Do you presently have visiting nurse or other home services: No Alcohol intake: current Alcohol intake frequency: holidays/special occasions only Patient Tobacco Use Status: Current everyday Tobacco user Tobacco use type: Cigarette Cigarettes Per Day: 5 Years Smoked: 50 e-Cigarette/Vaping Use: Never Used Second Hand Smoke Exposure: No Substance Use Type: Marijuana service: No Current occupational status: unemployed Sexual orientation: Straight/Heterosexual Cognitive needs: No Hearing needs: Yes Vision needs: Yes Questionnaire Thrive Questionnaire Date Thrive assessed: 03/08/25 I am a: Parent/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 What is your living situation today?: I have a steady place to live Within the past 12 months, did the food you bought not last and you didn't have the money to get more?: Never true Within the past 12 months, did you worry whether your food would run out before you got money to buy more?: Never true Do you have trouble paying for medicines?: No Do you have trouble getting transportation to medical appointments?: No Do you have trouble paying your heating and electricity bill?: No Do you have trouble taking care of your child, family member or friend?: No Do you have trouble with day-to-day activities such as bathing, preparing meals, shopping, managing finances, etc.?: No Are you currently unemployed and looking for a job?: Yes Are you interested in more education?: No Please select the resources that you would like help with: None Currently or been in a relationship where the following occur: No concerns reported THRIVE Score: 0 CARIE-7 AMB Questionnaire CARIE-7 Date CARIE - 7 assessed: 09/15/23 Source: Developed by Drs. Stefano Rajan, Maria Dolores Multani, Kaden Oscar and colleagues, with an educational juan from [employer]. Review of Systems Const Details: Const Denies chills, Denies fatigue, Denies fever(s), Denies headache(s) and Denies weakness ENT Denies dizziness and Denies headache(s) Card Denies chest pain, Denies lightheadedness, Denies dyspnea and Denies other (Palpitations) Resp Denies cough, Denies dyspnea, Denies wheezing and Denies other ( shortness of breath) GI Denies abdominal pain, Denies melena, Denies hematochezia, Denies change in bowel habits, Denies dyspepsia and Denies nausea Denies hematuria and Denies dysuria Musc Denies abnormal gait, Denies myalgias, Denies arthralgias, Denies numbness and Denies tingling Skin/Breast Reports as per HPI Neuro Denies abnormal gait, Denies dizziness, Denies headache(s), Denies memory loss, Denies numbness, Denies Sensory deficit (Neuro), Denies tingling and Denies weakness Psych Denies anxiety, Denies depression, Denies memory loss Endo Denies cold intolerance, Denies fatigue, Denies heat intolerance, Denies polydipsia and Denies polyuria Aller/Immun Denies wheezing Physical exam (Primary Care) Vital Signs: Last Vital Signs Temp 98.0 F 03/29/25 13:12 Pulse 71 03/29/25 13:12 Resp 16 03/29/25 13:12 BP 106/57 L 03/29/25 13:12 Pulse Ox 97 03/29/25 13:12 Oxygen Delivery Method Room Air 03/29/25 13:12 BMI result Body Mass Index 23.5 Tobacco/Smoking Status: Tobacco use Status Tobacco use date assessed 03/29/25 03/29/25 13:18 Patient Tobacco Use Status Current everyday Tobacco 03/29/25 13:18 Tobacco use type Cigarette 03/29/25 13:18 e-Cigarette/Vaping Use Never Used 03/29/25 13:18 Thrive Assessment: Date of Thrive Assessment Date Thrive assessed 03/08/25 03/29/25 13:18 Currently or been in a relationship where the following occur: No concerns reported Const Other: General: no acute distress and well developed Nutritional Appearance: well nourished Orientation/consciousness: patient oriented x3 HENMT Head: Yes normocephalic and Yes atraumatic Eyes General: appearance normal, both eyes and all related structures Pupils: Equal, round and reactive pupils present EOM: EOMs intact bilaterally Resp Effort & Inspection: normal respiratory effort Auscultation: clear to auscultation bilaterally Cardio Rate: regular rate Rhythm: regular rhythm Heart sounds: S1 normal heart sound present, S2 normal heart sound present, no gallops, no murmurs and no rubs GI Palpation (GI): No Abdominal aortic bruit present, Soft to palpation, nontender, No hepatosplenomegaly present and No Rebound tenderness present Auscultation: normal bowel sounds General: Yes no CVA tenderness Back/Spine/Pelvis Back: no CVA tenderness Cervical Spine: cervical ROM normal and No Cervical spine tenderness Thoracic/Lumbar Spine: thoraco-lumbar ROM normal, No pain with thoraco-lumbar ROM, No thoracic spinal tenderness and No lumbar spinal tenderness Extrem General: Yes normal to inspection, No edema and No calf tenderness Skin General: warm and dry. Normal skin color. Normal skin turgor Lesions: Few calluses/plantar warts that are painful to touch on the sole of both feet Rashes: no rashes Trauma: no lacerations or abrasions Wounds: no wounds Nails: normal Neuro General: patient oriented x3, gait normal and no focal neuro deficit Cranial nerves: Yes Equal, round and reactive pupils present Cognition (Neuro): normal cognition Gait exam (Neuro): Normal gait present Sensory Exam: No Sensory deficit (Neuro) Psych Appearance: grossly normal Affect: normal affect Attitude: cooperative Thought process: Normal thought process present Coding Level of Care Code Est Pt Level 3 (15392) Diagnoses Callus of foot L84 Plantar wart of both feet B07.0 Assessment & Plan Assessment & Plan (1) Callus of foot: Code(s): L84 - Corns and callosities Category: Medical Plan: Few calluses/plantar warts that are painful to touch on the sole of both. May take Tylenol as needed for pain or discomfort. He has been referred to Podiatry multiple times but could not be reached to schedule an appointment with them. Contact information provided for [facility]. Advised to call and schedule an appointment. Follow-up for an extended physical exam early next year.. Return sooner with symptoms or concerns. Verbalized understanding and agreed with the plan. (2) Plantar wart of both feet: Code(s): B07.0 - Plantar wart Category: Medical Plan: Plan as above.
[2025-03-29 13:12] VITALS: BP 106/57; PULSE 71; RESP 16; TEMP 36.7; O2SAT 97; BMI 23.5
== END 2025-03-29 13:27 | disposition home or self-care (01) ==
LOC: HO.HMCFM 13:01
PROVIDERS: PCP Nurse Practitioner Family; Visit Provider Nurse Practitioner Family
DX: B07.0 Plantar wart (principal); L84 Corns and callosities

== ENCOUNTER → 2025-03-29 13:00 | Outpatient (BNVA) | payer MEDICARE, MEDICAID, SELFPAY | PROVIDERS: PCP Nurse Practitioner Family; Visit Provider Nurse Practitioner Family | DX: L84 Corns and callosities (principal); B07.0 Plantar wart | CPT/HCPCS: 99212 ==

== ENCOUNTER 2025-04-21 12:34 | Outpatient (AMB) | payer MEDICARE, MEDICAID, SELFPAY ==
[2025-04-21 12:51] VITALS: BMI 21.9
--- NOTE | 2025-04-21 12:51 | A.OFFVIS_ITS ---
Vital Signs 04/21/25 12:51 Height 5 ft 7 in Weight 140 lb BMI 21.9 Intake Visit Reasons: painful toes Intake Note: Jamshid is a 74 year old male who presents today as a new patient for an evaluation of his painful toes. Patient reports his pain is located plantar aspect of both foot due to possible callous and he states the pain has been going on for about 3-4 months. Patient reports he has not tried any treatment at this time and he would like to have his nails trimmed if possible. 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 The patient has not seen a bell clerk in several years. He complains of pain when ambulating to both feet, worse to the right foot. Denies injury to the foot, denies history of ulcerations. [facility] Medical History Smoker Nervous disorder Depression Anxiety Surgical History Hx of colonoscopy No pertinent past surgical history Social History Household Members: Other Household Members Other:: alf residents Housing: Other Housing Other:: alf Do you presently have visiting nurse or other home services: No Alcohol intake: current Alcohol intake frequency: holidays/special occasions only Patient Tobacco Use Status: Current everyday Tobacco user Tobacco use type: Cigarette Cigarettes Per Day: 5 Years Smoked: 50 e-Cigarette/Vaping Use: Never Used Second Hand Smoke Exposure: No Substance Use Type: Marijuana service: No Current occupational status: unemployed Sexual orientation: Straight/Heterosexual Cognitive needs: No Hearing needs: Yes Vision needs: Yes Review of Systems Const All systems reviewed & are unremarkable except as noted in HPI and below Physical Exam Vital Signs: BMI result Body Mass Index 21.9 Extrem Other: *Bilateral Lower Extremity Focused Exam Vascular: DP/PT 2/4, CFT less than 3 seconds all digits, temperature gradient warm to cool. No pedal hair. Derm: Dry xerosis bilateral feet. Large deep IPK lesion to the right submet 2nd, left submet 3rd and hyperkeratotic lesion to the medial left 2nd toe. Interdigital macerations left foot 1st to 4th interspaces and right 4th interspace Thickened elongated dystrophic discolored toenails x 10 with subungual debris. Neuro: Protective sensation grossly intact to bilateral lower extremities MSK: Moderate tenderness on palpation of the bilateral plantar corn lesions Office Procedures AMB Debridement/Avulsion Podia Details: Procedure: Nail debridement Location: 10 nails, bilateral feet Anesthesia: N/A Description: The affected toenails were cleansed with an antiseptic solution. Using sterile nail nippers and a rotary ray, dystrophic and mycotic nail material was carefully debrided and reduced in thickness. Care was taken to avoid trauma to the surrounding skin and nail bed. All debris was removed as tolerated. The area was inspected for signs of infection or ulceration. Patient tolerated the procedure well without complications. Tolerance: Patient tolerated procedure well, no immediate complications. Class B findings as per physical exam findings above. Procedure: Callus debridement Location: 3 lesions Anesthesia: N/A Description: The affected area was cleansed with an antiseptic solution. Using a sterile #15 blade, the hyperkeratotic tissue was radially debrided from the foot. All callused tissue was removed down to normal skin without causing bleeding or discomfort. The area was inspected for underlying ulceration or infection. Patient tolerated the procedure well. No complications noted. Tolerance: Patient tolerated procedure well, no immediate complications. 83390-Brpicgimllq of Nail 6+ 09254-Cegakrpesbk of Callus (2-4) Procedure code (CPT) selection complete Assessment & Plan Assessment & Plan (1) Lives in alf: Code(s): Z59.3 - Problems related to living in residential institution Category: Social Hx Plan: * Patient is unable to perform self-care (2) Onychogryphosis: Code(s): L60.2 - Onychogryphosis Category: Medical Plan: * Debrided nails x 10 using a sterile nail Nipper. (3) Shirley: Code(s): L84 - Corns and callosities Category: Medical Plan: * Debrided 3 lesions using a 15 blade. Dressed with Band-Aids. * Rx urea cream (4) Tinea pedis: Code(s): B35.3 - Tinea pedis Category: Medical Qualifiers: Laterality: bilateral Qualified Code(s): B35.3 - Tinea pedis Plan: * Rx nystatin Powder Orders: Orders AMB Debridement/Avulsion Podiatry Today L60.2 - Onychogryphosis, L84 - Corns and callosities Medications: New nystatin apply between toes 1 appl topical DAILY 30 grams 3RF urea 40% apply to corns/calluses daily 1 appl topical DAILY 28 grams 3RF corns and calluses L84 - Corns and callosities Coding Level of Care Code New Pt Level 4 (81774) Diagnoses Lives in alf Z59.3 Onychogryphosis L60.2 Shirley L84 Tinea pedis of both feet B35.3 Laterality: bilateral CPT Codes Skin Debridement - CPT: 80429-Goqmdikumkz of Nail 6+ ([id number]) Skin Debridement - CPT: 38079-Ytmyjjwetnb of Callus (2-4) ([id number]) Time Spent (min) 25
== END 2025-04-21 13:18 | disposition home or self-care (01) ==
LOC: HO.HPODS 12:35
PROVIDERS: PCP Nurse Practitioner Family; Visit Provider Student in an Organized Health Care Education/Training Program
DX: L60.2 Onychogryphosis (principal); L84 Corns and callosities; B35.3 Tinea pedis
CPT/HCPCS: 11056; 11721; 99204

== ENCOUNTER → 2025-04-21 12:34 | Outpatient (BNVA) | payer MEDICARE, MEDICAID, SELFPAY | PROVIDERS: PCP Nurse Practitioner Family; Visit Provider Student in an Organized Health Care Education/Training Program | DX: L60.2 Onychogryphosis (principal); L84 Corns and callosities | CPT/HCPCS: 11056; 11721; 99202 ==